=== PATIENT | female | born 1950 | race Caucasian/White ===

== ENCOUNTER 2021-03-31 11:10 | Inpatient (IN) | payer MEDICARE, OTHER ==
--- NOTE | 2021-03-31 11:20 | EDM.PDOC ---
ED HPI GENERAL MEDICAL PROBLEM - General Chief Complaint: Respiratory Problem Stated Complaint: SHORTNESS OF BREATH, COUGHING, WHEEZING Time Seen by Provider: 03/31/21 11:19 Source of Information: Reports: Patient, Family History Limitations: Reports: No Limitations - History of Present Illness INITIAL COMMENTS - FREE TEXT/NARRATIVE: Doris, 70-year-old female, presents along with her daughter to the emergency department with worsening respiratory distress. She has been ongoing with cough and worsening shortness of breath for the past 4 days. Has had no significant fevers. Feels a pressure sensation in the chest and now has developed musculature discomfort in the abdominal wall chest wall secondary of coughing. Cough is nonproductive. Noted hospitalized for respiratory status issues. Doris is a new patient in the system never having received services at the hospital or within [facility], and has only had establishment of care with [place] having an echocardiogram performed with normal findings and pulmonology consult pending. she is not experienced positive COVID-19 and is fully vaccinated. She has not had any Covid symptoms or direct contact. Onset Date: 03/27/21 Duration: Day(s):, Getting Worse Location: Reports: Chest Quality: Reports: Burning Severity: Severe Improves with: Reports: None, Other (Minimal if any improvement with the use of Bowdle dilators) Context: Reports: Sick Contact Associated Symptoms: Reports: No Other Symptoms Bilateral Middle Back Pain Score (Numeric/FACES): 5 - Related Data Allergies Allergy/AdvReac Type Severity Reaction Status Date / Time No Known Allergies Allergy Verified 03/31/21 11:29 Past Medical History HEENT History: Reports: Impaired Vision Cardiovascular History: Reports: High Cholesterol Respiratory History: Reports: None Gastrointestinal History: Reports: None Genitourinary History: Reports: None 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 Denies: Blood Transfusion(s) Immunologic History: Reports: None Oncologic (Cancer) History: Reports: None Dermatologic History: Reports: None - Infectious Disease History Infectious Disease History: Reports: None - Past Surgical History Head Surgeries/Procedures: Reports: None Cardiovascular Surgical History: Reports: None Respiratory Surgical History: Reports: None GI Surgical History: Reports: Cholecystectomy, Other (See Below) (Spleenectomy secondary of trauma age 7) Female Surgical History: Reports: Hysterectomy Endocrine Surgical History: Reports: None Neurological Surgical History: Reports: None Oncologic Surgical History: Reports: None Dermatological Surgical History: Reports: None - Past Imaging History Past Imaging History: Reports: Cardiac Echo, Xray ( Recent chest x-ray shows scarring of the lung. Unknown causation leading to upcoming pulmonary function testing scheduled for April.) - History Comment History Comment: She states that in the past was associated spider bites with some form of blood poisoning but states it has been several years since that had occurred. Social & Family History - Family History Family Medical History: No Pertinent Family History - Tobacco Use Tobacco Use Status *Q: Never Tobacco User Tobacco Use Within Last Twelve Months: No Used Tobacco, but Quit: No Smoking Cessation Information Provided To Patient: No Second Hand Smoke Exposure: Yes Second Hand Smoke Education Provided: No ED ROS GENERAL - Review of Systems Review Of Systems: Comprehensive ROS is negative, except as noted in HPI. ED EXAM, GENERAL - Physical Exam Exam: See Below Free Text/Narrative:: Alert, oriented, in mild respiratory distress. HEENT is negative discharge or deformity with pink moist mucous membranes. There is no evidence of cyanosis nor pallor. Neck is soft supple with no lymphadenopathy appreciated, no rigidity is noted. Thorax is very harsh scattered rhonchi with some associated crackles with forced exhalation and end expiratory wheeze noted predominantly to the left side. She is diaphoretic and warm to touch during cardiopulmonary examination. Cardiac is regular tachycardic with no noted murmur. No flank pain, no abdominal discomfort with bowel sounds present. No tenderness to palpation. Lower extremities have trace edema with skin warm and dry to the extremities. #1 Interpretation EKG Date: 03/31/21 Time: 12:23 Rhythm: NSR Rate (Beats/Min): 96 [place]: Normal P-Wave: Present QRS: Normal Course - Vital Signs Last Recorded V/S: Last Vital Signs Temp 97.3 F 03/31/21 11:25 Pulse 86 03/31/21 11:25 Resp 18 03/31/21 11:25 BP 135/82 03/31/21 11:25 Pulse Ox 93 L 03/31/21 11:25 - Orders/Labs/Meds Orders: Active Orders 24 hr Category Date Time Status EKG Documentation Completion [RC] ASDIRECTED Care 03/31/21 11:27 Active Peripheral IV Care [RC] . DIRECTED Care 03/31/21 11:27 Active RT Aerosol Therapy [RC] ASDIRECTED Care 03/31/21 11:39 Active CULTURE BLOOD [BC] Stat Lab 03/31/21 11:28 Ordered CULTURE BLOOD [BC] Stat Lab 03/31/21 11:45 Received Sodium Chloride 0.9% [Saline Flush] Med 03/31/21 11:26 Active 10 ml FLUSH Q8HR PRN Blood Culture x2 Reflex Set [OM.PC] Stat Oth 03/31/21 11:28 Ordered Peripheral IV Insertion Pediatric [OM.PC] Stat Oth 03/31/21 11:27 Ordered Code Status [Resuscitation Status] Stat Resus Stat 03/31/21 12:38 Ordered EKG 12 Lead [EK] Stat Ther 03/31/21 11:27 Ordered Medication Orders Sodium Chloride (Sodium Chloride 0.9% 10 Ml Syringe) 10 ml FLUSH Q8HR PRN PRN Reason: keep vein open Labs: Laboratory Tests 03/31/21 03/31/21 03/31/21 Range/Units 11:45 11:45 11:45 WBC 4.41 L (5.00-10.00) 10^3/uL RBC 4.70 (3.80-5.50) 10^6/uL Hgb 14.9 (12.0-16.0) g/dL Hct 43.8 (37.0-47.0) % MCV 93.2 H (82.0-92.0) fL MCH 31.7 H (27.0-31.0) pg MCHC 34.0 (32.0-36.0) g/dL RDW 14.0 (11.5-14.5) % Plt Count 314 (150-400) 10^3/uL MPV 10.1 (7.4-10.4) fL Add Manual Diff Yes Neutrophils % (Manual) 58 (50-70) % Band Neutrophils % 4 (4-12) % Lymphocytes % (Manual) 24 (20-40) % Monocytes % (Manual) 11 H (2-8) % Eosinophils % (Manual) 3 (1-3) % Absolute Neutrophils 2.7342 Lymphocytes # (Manual) 1.0584 Monocytes # (Manual) 0.4851 Eosinophils # (Manual) 0.1323 D-Dimer, Quantitative 277 (<400) ng/mL Sodium 135 L (136-145) mmol/L Potassium 3.6 (3.5-5.1) mmol/L Chloride 98 (98-107) mmol/L Carbon Dioxide 25.7 (21.0-32.0) mmol/L Anion Gap 14.9 (5-15) mmol/L BUN 7 (7-18) mg/dL Creatinine 0.55 (0.51-1.17) mg/dL Est Cr Clr Drug Dosing TNP Estimated GFR (MDRD) > 60 mL/min Glucose 113 (70-140) mg/dL Lactic Acid (0.4-2.0) mmol/L Calcium 8.9 (8.7-10.3) mg/dL Total Bilirubin 0.6 (0.2-1.0) mg/dL AST 58 H (15-37) U/L ALT 51 (14-63) U/L Alkaline Phosphatase 64 (46-116) U/L Troponin I High Sens 6.800 (0-51.000) pg/mL B-Natriuretic Peptide 37 (0-100) pg/mL Total Protein 7.7 (6.4-8.2) g/dL Albumin 3.47 (3.40-5.00) g/dL SARS CoV-2 RNA Rapid ROWDY (NEGATIVE) 03/31/21 03/31/21 Range/Units 11:45 12:26 WBC (5.00-10.00) 10^3/uL RBC (3.80-5.50) 10^6/uL Hgb (12.0-16.0) g/dL Hct (37.0-47.0) % MCV (82.0-92.0) fL MCH (27.0-31.0) pg MCHC (32.0-36.0) g/dL RDW (11.5-14.5) % Plt Count (150-400) 10^3/uL MPV (7.4-10.4) fL Add Manual Diff Neutrophils % (Manual) (50-70) % Band Neutrophils % (4-12) % Lymphocytes % (Manual) (20-40) % Monocytes % (Manual) (2-8) % Eosinophils % (Manual) (1-3) % Absolute Neutrophils Lymphocytes # (Manual) Monocytes # (Manual) Eosinophils # (Manual) D-Dimer, Quantitative (<400) ng/mL Sodium (136-145) mmol/L Potassium (3.5-5.1) mmol/L Chloride (98-107) mmol/L Carbon Dioxide (21.0-32.0) mmol/L Anion Gap (5-15) mmol/L BUN (7-18) mg/dL Creatinine (0.51-1.17) mg/dL Est Cr Clr Drug Dosing Estimated GFR (MDRD) mL/min Glucose (70-140) mg/dL Lactic Acid 0.9 (0.4-2.0) mmol/L Calcium (8.7-10.3) mg/dL Total Bilirubin (0.2-1.0) mg/dL AST (15-37) U/L ALT (14-63) U/L Alkaline Phosphatase (46-116) U/L Troponin I High Sens (0-51.000) pg/mL B-Natriuretic Peptide (0-100) pg/mL Total Protein (6.4-8.2) g/dL Albumin (3.40-5.00) g/dL SARS CoV-2 RNA Rapid ROWDY Negative (NEGATIVE) Meds: Medications Generic Name Dose Route Start Last Admin Trade Name Freq PRN Reason Stop Dose Admin Sodium Chloride 10 ml 03/31/21 11:26 Sodium Chloride 0.9% 10 Ml Syringe FLUSH Q8HR PRN keep vein open Discontinued Medications Generic Name Dose Route Start Last Admin Trade Name Freq PRN Reason Stop Dose Admin Albuterol/Ipratropium 3 ml 03/31/21 11:39 03/31/21 11:46 Albuterol/Ipratropium 3.0-0.5 Mg/3 Ml Neb Soln NEB 03/31/21 11:40 3 ml ONETIME ONE Administration Loratadine 10 mg 03/31/21 12:36 03/31/21 12:56 Loratadine 10 Mg Tab PO 03/31/21 12:37 10 mg ONETIME ONE Administration Prednisone 40 mg 03/31/21 12:36 03/31/21 12:56 Prednisone 10 Mg Tab PO 03/31/21 12:37 40 mg ONETIME ONE Administration Departure - Departure Time of Disposition: 13:20 Disposition: Refer to Observation Condition: Good Clinical Impression: COVID-19 ruled out by laboratory testing, Tachycardia with heart rate 100-120 beats per minute, Requires oxygen therapy, COPD (chronic obstructive pulmonary disease), Shortness of breath - Discharge Information *PRESCRIPTION DRUG MONITORING PROGRAM REVIEWED*: Not Applicable *COPY OF PRESCRIPTION DRUG MONITORING REPORT IN PATIENT KARAN: Not Applicable Referrals: Keke Silva PA-C [Primary Care Provider] - Forms: ED Department Discharge Additional Instructions: Discussion with Dr. Veronica Aparicio for observation placement. Will be full CODE STATUS. Sepsis Event Note (ED) - Focused Exam Vital Signs: Vital Signs Temp Pulse Resp BP Pulse Ox 03/31/21 11:25 97.3 F 86 18 135/82 93 L ED Communication - ED Communication Date/Time Date: 03/31/21 Time Called: 12:30 - Discussed Case With (1) Discussed Case With (1): Admitting Provider Person/s Notified (1): Milly Zayas - Problem List & Annotations (1) Shortness of breath SNOMED Code(s): 332415939 Code(s): R06.02 - SHORTNESS OF BREATH Status: Acute Priority: High Current Visit: Yes (2) Tachycardia with heart rate 100-120 beats per minute SNOMED Code(s): 4742649 Code(s): R00.0 - TACHYCARDIA, UNSPECIFIED Status: Acute Priority: Medium Current Visit: Yes (3) COPD (chronic obstructive pulmonary disease) SNOMED Code(s): 18278353 Code(s): J44.9 - CHRONIC OBSTRUCTIVE PULMONARY DISEASE, UNSPECIFIED Status: Acute Priority: High Current Visit: Yes Qualifiers: COPD type: unspecified COPD Qualified Code(s): J44.9 - Chronic obstructive pulmonary disease, unspecified (4) Requires oxygen therapy SNOMED Code(s): 269185093049 Code(s): Z99.81 - DEPENDENCE ON SUPPLEMENTAL OXYGEN Status: Acute Priority: High Current Visit: Yes (5) COVID-19 ruled out by laboratory testing SNOMED Code(s): 869115559142967579, 241778516581072533 Code(s): Z20.822 - CONTACT WITH AND (SUSPECTED) EXPOSURE TO COVID-19 Status: Acute Current Visit: Yes - Problem List Review Problem List Initiated/Reviewed/Updated: Yes - My Orders Last 24 Hours: My Active Orders 03/31/21 11:26 Sodium Chloride 0.9% [Saline Flush] 10 ml FLUSH Q8HR PRN 03/31/21 11:27 EKG Documentation Completion [RC] ASDIRECTED Peripheral IV Care [RC] . DIRECTED Peripheral IV Insertion Pediatric [OM.PC] Stat EKG 12 Lead [EK] Stat 03/31/21 11:28 CULTURE BLOOD [BC] Stat Blood Culture x2 Reflex Set [OM.PC] Stat 03/31/21 11:39 RT Aerosol Therapy [RC] ASDIRECTED 03/31/21 11:45 CULTURE BLOOD [BC] Stat 03/31/21 12:38 Code Status [Resuscitation Status] Stat - Assessment/Plan Last 24 Hours: My Active Orders 03/31/21 11:26 Sodium Chloride 0.9% [Saline Flush] 10 ml FLUSH Q8HR PRN 03/31/21 11:27 EKG Documentation Completion [RC] ASDIRECTED Peripheral IV Care [RC] . DIRECTED Peripheral IV Insertion Pediatric [OM.PC] Stat EKG 12 Lead [EK] Stat 03/31/21 11:28 CULTURE BLOOD [BC] Stat Blood Culture x2 Reflex Set [OM.PC] Stat 03/31/21 11:39 RT Aerosol Therapy [RC] ASDIRECTED 03/31/21 11:45 CULTURE BLOOD [BC] Stat 03/31/21 12:38 Code Status [Resuscitation Status] Stat Plan: Discussion with Dr. Veronica Aparicio for observation placement. Will be full CODE STATUS.
[2021-03-31] MEDS ORDERED: Sodium Chloride 0.9% 10 ML Syringe FLUSH PRN (11:26)
[2021-03-31] MEDS ORDERED: Albuterol/Ipratropium 3.0-0.5 MG/3 ML Neb Soln NEB ONE (11:39)
[2021-03-31 12:07] LABS: ANION GAP 14.9 mmol/L (5-15); CHLORIDE,CL 98 mmol/L (98-107); SODIUM,NA 135 mmol/L (136-145)
--- NOTE | 2021-03-31 12:31 | CR ---
[id number] RAD/RAD Chest PA And Lateral EXAM: FRONTAL AND LATERAL CHEST INDICATION: SHORT OF BREATH. COMPARISON: January 19, 2017 DISCUSSION: Hyperinflation suggests underlying chronic obstructive pulmonary disease. No acute infiltrates are identified. Normal heart size. No effusions. IMPRESSION: 1. No acute findings. Cristi Turner MD 03/31/21 [phone] Thank you for allowing us to participate in the care of your patient.
[2021-03-31] MEDS ORDERED: predniSONE 10 MG Tab PO ONE (12:36)
[2021-03-31] MEDS ORDERED: Loratadine 10 MG Tab PO ONE (12:36)
[2021-03-31] MEDS ORDERED: Acetaminophen 325 MG Tab PO PRN (15:12)
[2021-03-31] MEDS: Albuterol/Ipratropium 3.0-0.5 MG/3 ML Neb Soln NEB PRN (20:42)
[2021-03-31] MEDS: Melatonin 3 MG Tab PO PRN (20:44)
[2021-04-01] MEDS: predniSONE 20 MG Tab PO SCH (08:24)
[2021-04-01] MEDS: Loratadine 10 MG Tab PO SCH (08:24)
[2021-04-01] MEDS: Rosuvastatin 10 MG Tab PO SCH (08:24)
[2021-04-01] MEDS: Albuterol/Ipratropium 3.0-0.5 MG/3 ML Neb Soln NEB PRN (08:29)
[2021-04-01] MEDS ORDERED: Albuterol 0.083% 2.5 MG/3 ML Neb Soln NEB PRN (11:51)
[2021-04-01] MEDS ORDERED: Diclofenac Sodium 1% Gel 100 GM Tube TOP PRN (11:52)
--- NOTE | 2021-04-01 12:14 | PCM.PN ---
- General Info Date of Service: 04/01/21 Subjective Update: Mrs. Ivy reports feeling slightly better than yesterday, most notably for the couple hours after DuoNeb treatments, but then returning back to increasing shortness of breath and cough. Slept poorly. Eating without difficulty. Voiding and stooling without problem. - Patient Data Vitals - Most Recent: Last Vital Signs Temp 36.6 C 04/01/21 11:00 Pulse 86 04/01/21 11:00 Resp 24 H 04/01/21 11:00 BP 125/61 04/01/21 11:00 Pulse Ox 87 L 04/01/21 11:00 Weight - Most Recent: 112.4 kg I&O - Last 24 Hours: Intake & Output 03/31/21 04/01/21 04/01/21 22:59 06:59 14:59 Intake Total 550 350 Output Total 950 Balance 550 -600 Lab Results Last 24 Hours: Laboratory Results - last 24 hr 03/31/21 03/31/21 03/31/21 Range/Units 11:45 11:45 11:45 Neutrophils % (Manual) 58 (50-70) % Band Neutrophils % 4 (4-12) % Lymphocytes % (Manual) 24 (20-40) % Monocytes % (Manual) 11 H (2-8) % Eosinophils % (Manual) 3 (1-3) % Absolute Neutrophils 2.7342 Lymphocytes # (Manual) 1.0584 Monocytes # (Manual) 0.4851 Eosinophils # (Manual) 0.1323 Sodium 135 L (136-145) mmol/L Potassium 3.6 (3.5-5.1) mmol/L Chloride 98 (98-107) mmol/L Carbon Dioxide 25.7 (21.0-32.0) mmol/L Anion Gap 14.9 (5-15) mmol/L BUN 7 (7-18) mg/dL Creatinine 0.55 (0.51-1.17) mg/dL Est Cr Clr Drug Dosing TNP Estimated GFR (MDRD) > 60 mL/min Glucose 113 (70-140) mg/dL Lactic Acid 0.9 (0.4-2.0) mmol/L Calcium 8.9 (8.7-10.3) mg/dL Total Bilirubin 0.6 (0.2-1.0) mg/dL AST 58 H (15-37) U/L ALT 51 (14-63) U/L Alkaline Phosphatase 64 (46-116) U/L Troponin I High Sens 6.800 (0-51.000) pg/mL B-Natriuretic Peptide 37 (0-100) pg/mL Total Protein 7.7 (6.4-8.2) g/dL Albumin 3.47 (3.40-5.00) g/dL SARS CoV-2 RNA Rapid ROWDY (NEGATIVE) 03/31/21 Range/Units 12:26 Neutrophils % (Manual) (50-70) % Band Neutrophils % (4-12) % Lymphocytes % (Manual) (20-40) % Monocytes % (Manual) (2-8) % Eosinophils % (Manual) (1-3) % Absolute Neutrophils Lymphocytes # (Manual) Monocytes # (Manual) Eosinophils # (Manual) Sodium (136-145) mmol/L Potassium (3.5-5.1) mmol/L Chloride (98-107) mmol/L Carbon Dioxide (21.0-32.0) mmol/L Anion Gap (5-15) mmol/L BUN (7-18) mg/dL Creatinine (0.51-1.17) mg/dL Est Cr Clr Drug Dosing Estimated GFR (MDRD) mL/min Glucose (70-140) mg/dL Lactic Acid (0.4-2.0) mmol/L Calcium (8.7-10.3) mg/dL Total Bilirubin (0.2-1.0) mg/dL AST (15-37) U/L ALT (14-63) U/L Alkaline Phosphatase (46-116) U/L Troponin I High Sens (0-51.000) pg/mL B-Natriuretic Peptide (0-100) pg/mL Total Protein (6.4-8.2) g/dL Albumin (3.40-5.00) g/dL SARS CoV-2 RNA Rapid ROWDY Negative (NEGATIVE) Med Orders - Current: Current Medications Acetaminophen (Acetaminophen 325 Mg Tab) 650 mg PO Q4H PRN PRN Reason: analgesia/fever Albuterol (Albuterol 0.083% 2.5 Mg/3 Ml Neb Soln) 2.5 mg NEB Q4HRRT PRN PRN Reason: Shortness of Breath Albuterol/Ipratropium (Albuterol/Ipratropium 3.0-0.5 Mg/3 Ml Neb Soln) 3 ml NEB Q6H KIM Diclofenac Sodium (Diclofenac Sodium 1% Gel 100 Gm Tube) 1 gm TOP Q6H PRN PRN Reason: Pain Fluticasone Propionate (Fluticasone Propionate Nasal [place] 16 Gm Bottle) 0 gm NASBOTH BID [facility] Loratadine (Loratadine 10 Mg Tab) 10 mg PO DAILY [facility] Last Admin: 04/01/21 08:24 Dose: 10 mg Documented by: Melatonin (Melatonin 3 Mg Tab) 3 mg PO BEDTIME PRN PRN Reason: Insomnia Last Admin: 03/31/21 20:44 Dose: 3 mg Documented by: Prednisone (Prednisone 20 Mg Tab) 40 mg PO WITHBREAKFAST [facility] Last Admin: 04/01/21 08:24 Dose: 40 mg Documented by: Rosuvastatin Calcium (Rosuvastatin 10 Mg Tab) 10 mg PO DAILY [facility] Last Admin: 04/01/21 08:24 Dose: 10 mg Documented by: Sodium Chloride (Sodium Chloride 0.9% 10 Ml Syringe) 10 ml FLUSH Q8HR PRN PRN Reason: keep vein open Discontinued Medications Albuterol/Ipratropium (Albuterol/Ipratropium 3.0-0.5 Mg/3 Ml Neb Soln) 3 ml NEB ONETIME ONE Stop: 03/31/21 11:40 Last Admin: 03/31/21 11:46 Dose: 3 ml Documented by: Albuterol/Ipratropium (Albuterol/Ipratropium 3.0-0.5 Mg/3 Ml Neb Soln) 3 ml NEB Q4HRRT PRN PRN Reason: Shortness of Breath Last Admin: 04/01/21 08:29 Dose: 3 ml Documented by: Loratadine (Loratadine 10 Mg Tab) 10 mg PO ONETIME ONE Stop: 03/31/21 12:37 Last Admin: 03/31/21 12:56 Dose: 10 mg Documented by: Prednisone (Prednisone 10 Mg Tab) 40 mg PO ONETIME ONE Stop: 03/31/21 12:37 Last Admin: 03/31/21 12:56 Dose: 40 mg Documented by: - Exam Physical Findings Comments:: GENERAL: Elderly white female sitting in hospital bed with mild increased work of breathing and audible expiratory wheezing. HEENT: Normocephalic, atraumatic. Conjunctiva clear. Nasal cannula in place. Clear rhinorrhea. Postnasal drip. Mucous membranes moist. NECK: Supple, no masses. CV: Regular rate and rhythm, no murmurs, rubs, or gallops. 2+ radial pulses. No JVD. PULMONARY: Diffuse expiratory wheezing throughout lung chaudhary, with interval improvement from admission. ABDOMEN: Positive bowel sounds, soft, nontender, nondistended. EXTREMITIES: No edema, cyanosis, or clubbing. MUSCULOSKELETAL: Moves all extremities well. NEUROLOGICAL: No obvious deficits. DERMATOLOGIC: No rashes or suspicious lesions in exposed areas. PSYCHIATRIC: Alert, interactive, appropriate affect. - Patient Data Lab Results Last 24 hrs: Laboratory Results - last 24 hr 03/31/21 03/31/21 03/31/21 Range/Units 11:45 11:45 11:45 Neutrophils % (Manual) 58 (50-70) % Band Neutrophils % 4 (4-12) % Lymphocytes % (Manual) 24 (20-40) % Monocytes % (Manual) 11 H (2-8) % Eosinophils % (Manual) 3 (1-3) % Absolute Neutrophils 2.7342 Lymphocytes # (Manual) 1.0584 Monocytes # (Manual) 0.4851 Eosinophils # (Manual) 0.1323 Sodium 135 L (136-145) mmol/L Potassium 3.6 (3.5-5.1) mmol/L Chloride 98 (98-107) mmol/L Carbon Dioxide 25.7 (21.0-32.0) mmol/L Anion Gap 14.9 (5-15) mmol/L BUN 7 (7-18) mg/dL Creatinine 0.55 (0.51-1.17) mg/dL Est Cr Clr Drug Dosing TNP Estimated GFR (MDRD) > 60 mL/min Glucose 113 (70-140) mg/dL Lactic Acid 0.9 (0.4-2.0) mmol/L Calcium 8.9 (8.7-10.3) mg/dL Total Bilirubin 0.6 (0.2-1.0) mg/dL AST 58 H (15-37) U/L ALT 51 (14-63) U/L Alkaline Phosphatase 64 (46-116) U/L Troponin I High Sens 6.800 (0-51.000) pg/mL B-Natriuretic Peptide 37 (0-100) pg/mL Total Protein 7.7 (6.4-8.2) g/dL Albumin 3.47 (3.40-5.00) g/dL SARS CoV-2 RNA Rapid ROWDY (NEGATIVE) 03/31/21 Range/Units 12:26 Neutrophils % (Manual) (50-70) % Band Neutrophils % (4-12) % Lymphocytes % (Manual) (20-40) % Monocytes % (Manual) (2-8) % Eosinophils % (Manual) (1-3) % Absolute Neutrophils Lymphocytes # (Manual) Monocytes # (Manual) Eosinophils # (Manual) Sodium (136-145) mmol/L Potassium (3.5-5.1) mmol/L Chloride (98-107) mmol/L Carbon Dioxide (21.0-32.0) mmol/L Anion Gap (5-15) mmol/L BUN (7-18) mg/dL Creatinine (0.51-1.17) mg/dL Est Cr Clr Drug Dosing Estimated GFR (MDRD) mL/min Glucose (70-140) mg/dL Lactic Acid (0.4-2.0) mmol/L Calcium (8.7-10.3) mg/dL Total Bilirubin (0.2-1.0) mg/dL AST (15-37) U/L ALT (14-63) U/L Alkaline Phosphatase (46-116) U/L Troponin I High Sens (0-51.000) pg/mL B-Natriuretic Peptide (0-100) pg/mL Total Protein (6.4-8.2) g/dL Albumin (3.40-5.00) g/dL SARS CoV-2 RNA Rapid ROWDY Negative (NEGATIVE) Result Diagrams: 03/31/21 11:45 03/31/21 11:45 Sepsis Event Note - Evaluation Sepsis Screening Result: No Definite Risk - Focused Exam Vital Signs: Vital Signs Temp Pulse Resp BP Pulse Ox Pulse Ox Pulse Ox 04/01/21 11:00 36.6 C 86 24 H 125/61 87 L 04/01/21 10:50 87 L 04/01/21 10:30 95 04/01/21 08:29 71 95 04/01/21 06:30 36.6 C 74 16 120/72 96 04/01/21 02:59 36.4 C 79 16 134/66 97 - Problem List Review Problem List Initiated/Reviewed/Updated: Yes - My Orders Last 24 Hours: My Active Orders 03/31/21 15:12 Up With Assistance [RC] ASDIRECTED Vital Signs [RC] Q8H Acetaminophen [TylenoL] 650 mg PO Q4H PRN 03/31/21 15:13 Intake and Output [RC] 1400,2200,0600 Oxygen Therapy [RC] .PRN 03/31/21 15:15 RT Aerosol Therapy [RC] ASDIRECTED 03/31/21 Dinner Regular Diet [DIET] 03/31/21 20:35 Melatonin 3 mg PO BEDTIME PRN 04/01/21 08:00 predniSONE 40 mg PO WITHBREAKFAST 04/01/21 09:00 Loratadine [Claritin] 10 mg PO DAILY Rosuvastatin [Crestor] 10 mg PO DAILY 04/01/21 11:50 Incentive Spirometry [RT Incentive Spirometry] [RC] Q1HWA Chest wo Cont [CT] Routine 04/01/21 11:51 RT Aerosol Therapy [RC] ASDIRECTED Albuterol [Proventil Neb Soln] 2.5 mg NEB Q4HRRT PRN 04/01/21 11:52 Diclofenac Sodium [Voltaren 1% Gel] 1 gm TOP Q6H PRN Heat Therapy [OM.PC] Routine Ice Therapy [OM.PC] Routine 04/01/21 12:00 Albuterol/Ipratropium [DuoNeb 3.0-0.5 MG/3 ML] 3 ml NEB Q6H Fluticasone Propionate [Flonase] 0 gm NASBOTH BID - Plan Plan:: HPI summary: Mrs. Ivy is a 70yoF with a history of hyperlipidemia who reported to the ED for progressive shortness of breath and cough. She notes several months of increasing shortness of breath and cough, which has especially worsened in the past week. She was seen to establish care with Keke Silva PA-C, on 03/13/21, and at that time had noted several weeks of shortness of breath for which she had CXR and echocardiogram performed, which were overall without suggestive sarah ology. She had previously been referred to pulmonology by prior PCP and is scheduled to be seen at [facility] on 05/01/21. She has since had ongoing worsening of dry cough, wheezing, and shortness of breath. Due to ongoing significant worsening, she was brought to the [facility] ED for further evaluation. She recently moved to [place] into an apartment in October 2019; previously lived in a single family home in [place]. Her , Adalberto, has also had worsening shortness of breath and cough over the past several months. ED course: VS normal except for O2 <90% on room air, requiring 2lpm via nasal cannula to be 90% Appears short of breath and with audible wheezing CBC/CMP/lactic acid/BNP/D-dimer/troponin normal except for WBC low at 4.41 and AST elevated at 58 SARS-CoV-2 negative CXR without acute abnormality, but with hyperinflation suggesting COPD EKG NSR without ST-segment changes Given DuoNebs with improvement, but still with oxygen requirement Hospital course: Called for admission due to persistent hypoxia. Etiology favors possible underlying COPD and possible allergic versus environmental trigger. Recommended administration of prednisone 40mg and loratadine 10mg along with admission to observation status for further monitoring, workup, and management. 04/01/21: Persistent oxygen requirement as well as shortness of breath and cough, albeit with mild improvement with DuoNebs, prednisone, and loratadine. History elucidated to be more of a chronic concern in the past several months, with ongoing suspicion for environmental exposure. Hospitalization problems and plan: # Acute hypoxic respiratory failure: No prior oxygen requirement. # COPD, possible: Hyperinflation on CXR. No prior PFTs. # Allergic rhinitis # Possible environmental allergy or exposure: History of her and recently moving in October 2019 to apartment and both having onset of progressive shortness of breath, wheezing, and cough since without other identifiable etiology. - VS q8h, I/O - Titrate oxygen to maintain saturations at at least 90% - Respiratory therapy assisting with home oxygen qualification testing; order sent to [facility] for home oxygen if needed at discharge - Incentive spirometry q1h while awake - Change nebulizer treatments to DuoNebs q6h scheduled with albuterol q6h prn - Continue prednisone 40mg daily - Continue loratadine 10mg daily - Start Flonase BID - CT chest to further assess for underlying bronchiectasis or other pulmonary process - Consider fungal testing to further elucidate etiology - Coordinate future PFTs to further evaluate prior to planned upcoming pulmonology appointment - Encourage looking into vent system and other possible culprits for environmental exposure at apartment # Posterior L rib pain: Fitting with MSK strain from coughing. - Diclofenac topical, heat, and ice therapy to site Chronic, stable conditions: # Hyperlipidemia: Continue rosuvastatin. Hospitalization details: # FEN: No IVF. Electrolytes normal. Regular diet. # PPX: Enoxaparin for DVT ppx while in hospital. # Code status: FULL, discussed with patient upon admission. # Emergency contact: , Adalberto. Daughter, Pam. # Disposition: Admit to observation status for new onset hypoxia for further evaluation and management.
--- NOTE | 2021-04-01 12:14 | PCM.HP.2 ---
H&P History of Present Illness - General Date of Service: 03/31/21 Admit Problem/Dx: Admission Diagnosis/Problem Admission Diagnosis/Problem COPD, Mild chronic obstructive pulmonary disease Source of Information: Patient, Family, Old Records, Provider - History of Present Illness Initial Comments - Free Text/Narative: Mrs. Ivy is a 70yoF with a history of hyperlipidemia who reported to the ED for progressive shortness of breath and cough. She notes several months of increasing shortness of breath and cough, which has especially worsened in the past week. She was seen to establish care with Keke Silva PA-C, on 03/13/21, and at that time had noted several weeks of worsening symptoms for which she had CXR and echocardiogram performed, which were overall without suggestive etiology. She has since had ongoing worsening of dry cough, wheezing, and shortness of breath. Due to ongoing significant worsening, she was brought to the [facility] ED for further evaluation. She recently moved to [place] into an apartment; previously lived in a single family home in [place]. Her , Adalberto, has also had worsening shortness of breath and cough over the past several weeks. Upon evaluation in the ED, she notes some mild improvement in symptoms s/p DuoNeb treatment, but still endorses symptoms even at rest. Bilateral Middle Back Pain Score (Numeric/FACES): 8 - Related Data Allergies/Adverse Reactions: Allergies Allergy/AdvReac Type Severity Reaction Status Date / Time No Known Allergies Allergy Verified 03/31/21 11:29 Home Medications: Home Meds Albuterol [Ventolin HFA] 1 puff IA ASDIRECTED PRN 03/31/21 [History] Rosuvastatin [Crestor] 10 mg PO DAILY 03/31/21 [History] Past Medical History HEENT History: Reports: Impaired Vision Cardiovascular History: Reports: High Cholesterol Respiratory History: Reports: None Gastrointestinal History: Reports: None Genitourinary History: Reports: None [employer] History: Reports: Musculoskeletal History: Reports: Other (See Below) Neurological History: Reports: None Psychiatric History: Reports: None Endocrine/Metabolic History: Reports: None Hematologic History: Reports: None Immunologic History: Reports: None Oncologic (Cancer) History: Reports: None Dermatologic History: Reports: None - Infectious Disease History Infectious Disease History: Reports: None - Past Surgical History Head Surgeries/Procedures: Reports: None Cardiovascular Surgical History: Reports: None Respiratory Surgical History: Reports: None GI Surgical History: Reports: Cholecystectomy, Other (See Below) Female Surgical History: Reports: Hysterectomy Endocrine Surgical History: Reports: None Neurological Surgical History: Reports: None Musculoskeletal Surgical History: Reports: Knee Replacement Oncologic Surgical History: Reports: None Dermatological Surgical History: Reports: None - Past Imaging History Past Imaging History: Reports: Cardiac Echo, Xray ( Recent chest x-ray shows scarring of the lung. Unknown causation leading to upcoming pulmonary function testing scheduled for April.) - History Comment History Comment: She states that in the past was associated spider bites with some form of blood poisoning but states it has been several years since that had occurred. Social & Family History - Family History Family Medical History: No Pertinent Family History - Tobacco Use Tobacco Use Status *Q: Never Tobacco User Used Tobacco, but Quit: No Second Hand Smoke Exposure: Yes - Caffeine Use Caffeine Use: Reports: Coffee - Recreational Drug Use Recreational Drug Use: No H&P Review of Systems - Review of Systems: Review Of Systems: See Below General: Reports: Weakness, Fatigue. Denies: Fever, Chills HEENT: Reports: Rhinitis, Post Nasal Drip. Denies: Ear Pain, Eye Pain, Headaches, Sore Throat, Visual Changes Pulmonary: Reports: Shortness of Breath, Wheezing, Cough. Denies: Sputum, Hemoptysis Cardiovascular: Reports: Dyspnea on Exertion. Denies: Chest Pain, Palpitations, Orthopnea, PND, Edema, Lightheadedness, Syncope Gastrointestinal: Denies: Abdominal Pain, Constipation, Diarrhea, Nausea, Vomiting Genitourinary: Denies: Dysuria, Frequency, Burning Musculoskeletal: Reports: Back Pain (along posterior L rib). Denies: Muscle Pain, Muscle Stiffness Skin: Denies: Bruising, Rash, Wound Psychiatric: Denies: Confusion, Depression, Anxiety Neurological: Denies: Confusion, Dizziness, Headache, Numbness Hematologic/Lymphatic: Denies: Anemia, Easy Bleeding, Easy Bruising Exam - Exam Exam: See Below - Vital Signs Vital Signs: Last Vital Signs Temp 36.6 C 04/01/21 11:00 Pulse 86 04/01/21 11:00 Resp 24 H 04/01/21 11:00 BP 125/61 04/01/21 11:00 Pulse Ox 87 L 04/01/21 11:00 Weight: 112.4 kg - Exam Physical Exam Comments:: GENERAL: Elderly white female sitting in ED bed with mild increased work of breathing. Daughter, Pam, at bedside. HEENT: Normocephalic, atraumatic. Conjunctiva clear. Nasal cannula in place. Clear rhinorrhea. Postnasal drip. Mucous membranes moist. NECK: Supple, no masses. CV: Regular rate and rhythm, no murmurs, rubs, or gallops. 2+ radial pulses. No JVD. PULMONARY: Diffuse expiratory wheezing throughout lung chaudhary. ABDOMEN: Positive bowel sounds, soft, nontender, nondistended. EXTREMITIES: No edema, cyanosis, or clubbing. MUSCULOSKELETAL: Moves all extremities well. NEUROLOGICAL: No obvious deficits. DERMATOLOGIC: No rashes or suspicious lesions in exposed areas. PSYCHIATRIC: Alert, interactive, appropriate affect. - Patient Data Lab Results Last 24 hrs: Laboratory Results - last 24 hr 03/31/21 03/31/21 03/31/21 Range/Units 11:45 11:45 11:45 Neutrophils % (Manual) 58 (50-70) % Band Neutrophils % 4 (4-12) % Lymphocytes % (Manual) 24 (20-40) % Monocytes % (Manual) 11 H (2-8) % Eosinophils % (Manual) 3 (1-3) % Absolute Neutrophils 2.7342 Lymphocytes # (Manual) 1.0584 Monocytes # (Manual) 0.4851 Eosinophils # (Manual) 0.1323 Sodium 135 L (136-145) mmol/L Potassium 3.6 (3.5-5.1) mmol/L Chloride 98 (98-107) mmol/L Carbon Dioxide 25.7 (21.0-32.0) mmol/L Anion Gap 14.9 (5-15) mmol/L BUN 7 (7-18) mg/dL Creatinine 0.55 (0.51-1.17) mg/dL Est Cr Clr Drug Dosing TNP Estimated GFR (MDRD) > 60 mL/min Glucose 113 (70-140) mg/dL Lactic Acid 0.9 (0.4-2.0) mmol/L Calcium 8.9 (8.7-10.3) mg/dL Total Bilirubin 0.6 (0.2-1.0) mg/dL AST 58 H (15-37) U/L ALT 51 (14-63) U/L Alkaline Phosphatase 64 (46-116) U/L Troponin I High Sens 6.800 (0-51.000) pg/mL B-Natriuretic Peptide 37 (0-100) pg/mL Total Protein 7.7 (6.4-8.2) g/dL Albumin 3.47 (3.40-5.00) g/dL SARS CoV-2 RNA Rapid ROWDY (NEGATIVE) 03/31/21 Range/Units 12:26 Neutrophils % (Manual) (50-70) % Band Neutrophils % (4-12) % Lymphocytes % (Manual) (20-40) % Monocytes % (Manual) (2-8) % Eosinophils % (Manual) (1-3) % Absolute Neutrophils Lymphocytes # (Manual) Monocytes # (Manual) Eosinophils # (Manual) Sodium (136-145) mmol/L Potassium (3.5-5.1) mmol/L Chloride (98-107) mmol/L Carbon Dioxide (21.0-32.0) mmol/L Anion Gap (5-15) mmol/L BUN (7-18) mg/dL Creatinine (0.51-1.17) mg/dL Est Cr Clr Drug Dosing Estimated GFR (MDRD) mL/min Glucose (70-140) mg/dL Lactic Acid (0.4-2.0) mmol/L Calcium (8.7-10.3) mg/dL Total Bilirubin (0.2-1.0) mg/dL AST (15-37) U/L ALT (14-63) U/L Alkaline Phosphatase (46-116) U/L Troponin I High Sens (0-51.000) pg/mL B-Natriuretic Peptide (0-100) pg/mL Total Protein (6.4-8.2) g/dL Albumin (3.40-5.00) g/dL SARS CoV-2 RNA Rapid ROWDY Negative (NEGATIVE) Result Diagrams: 03/31/21 11:45 03/31/21 11:45 Sepsis Event Note - Evaluation Sepsis Screening Result: No Definite Risk - Focused Exam Vital Signs: Vital Signs Temp Pulse Resp BP Pulse Ox Pulse Ox Pulse Ox 04/01/21 11:00 36.6 C 86 24 H 125/61 87 L 04/01/21 10:50 87 L 04/01/21 10:30 95 04/01/21 08:29 71 95 04/01/21 06:30 36.6 C 74 16 120/72 96 04/01/21 02:59 36.4 C 79 16 134/66 97 Problem List Initiated/Reviewed/Updated: Yes Orders Last 24hrs: Active Orders 24 hr Category Date Time Status Patient Status [ADT] Routine ADT 03/31/21 13:13 Active Incentive Spirometry [RT Incentive Spirometry] [RC] Care 04/01/21 11:50 Active Q1HWA Intake and Output [RC] 1400,2200,0600 Care 03/31/21 15:13 Active Oxygen Therapy [RC] .PRN Care 03/31/21 15:13 Active Peripheral IV Care [RC] . DIRECTED Care 03/31/21 11:27 Active RT Aerosol Therapy [RC] ASDIRECTED Care 03/31/21 15:15 Active RT Aerosol Therapy [RC] ASDIRECTED Care 04/01/21 11:51 Active Up With Assistance [RC] ASDIRECTED Care 03/31/21 15:12 Active Vital Signs [RC] Q8H Care 03/31/21 15:12 Active Regular Diet [DIET] Diet 03/31/21 Dinner Active Chest wo Cont [CT] Routine Exams 04/01/21 11:50 Ordered CULTURE BLOOD [BC] Stat Lab 03/31/21 11:45 Received CULTURE BLOOD [BC] Stat Lab 03/31/21 12:25 Received Acetaminophen [TylenoL] Med 03/31/21 15:12 Active 650 mg PO Q4H PRN Albuterol [Proventil Neb Soln] Med 04/01/21 11:51 Active 2.5 mg NEB Q4HRRT PRN Albuterol/Ipratropium [DuoNeb 3.0-0.5 MG/3 ML] Med 04/01/21 12:00 Active 3 ml NEB Q6H Diclofenac Sodium [Voltaren 1% Gel] Med 04/01/21 11:52 Active 1 gm TOP Q6H PRN Fluticasone Propionate [Flonase] Med 04/01/21 12:00 Active 0 gm NASBOTH BID Loratadine [Claritin] Med 04/01/21 09:00 Active 10 mg PO DAILY Melatonin Med 03/31/21 20:35 Active 3 mg PO BEDTIME PRN Rosuvastatin [Crestor] Med 04/01/21 09:00 Active 10 mg PO DAILY Sodium Chloride 0.9% [Saline Flush] Med 03/31/21 11:26 Active 10 ml FLUSH Q8HR PRN predniSONE Med 04/01/21 08:00 Active 40 mg PO WITHBREAKFAST Blood Culture x2 Reflex Set [OM.PC] Stat Ot 03/31/21 11:28 Ordered Heat Therapy [OM.PC] Routine Oth 04/01/21 11:52 Ordered Ice Therapy [OM.PC] Routine Oth 04/01/21 11:52 Ordered Peripheral IV Insertion Pediatric [OM.PC] Stat Oth 03/31/21 11:27 Ordered Code Status [Resuscitation Status] Stat Resus Stat 03/31/21 12:38 Ordered Medication Orders Acetaminophen (Acetaminophen 325 Mg Tab) 650 mg PO Q4H PRN PRN Reason: analgesia/fever Albuterol (Albuterol 0.083% 2.5 Mg/3 Ml Neb Soln) 2.5 mg NEB Q4HRRT PRN PRN Reason: Shortness of Breath Albuterol/Ipratropium (Albuterol/Ipratropium 3.0-0.5 Mg/3 Ml Neb Soln) 3 ml NEB Q6H KIM Diclofenac Sodium (Diclofenac Sodium 1% Gel 100 Gm Tube) 1 gm TOP Q6H PRN PRN Reason: Pain Fluticasone Propionate (Fluticasone Propionate Nasal Rumsey 16 Gm Bottle) 0 gm NASBOTH BID KIM Loratadine (Loratadine 10 Mg Tab) 10 mg PO DAILY [facility] Last Admin: 04/01/21 08:24 Dose: 10 mg Documented by: IAN Melatonin (Melatonin 3 Mg Tab) 3 mg PO BEDTIME PRN PRN Reason: Insomnia Last Admin: 03/31/21 20:44 Dose: 3 mg Documented by: ALMA Prednisone (Prednisone 20 Mg Tab) 40 mg PO WITHBREAKFAST KIM Last Admin: 04/01/21 08:24 Dose: 40 mg Documented by: IAN Rosuvastatin Calcium (Rosuvastatin 10 Mg Tab) 10 mg PO DAILY [facility] Last Admin: 04/01/21 08:24 Dose: 10 mg Documented by: IAN Sodium Chloride (Sodium Chloride 0.9% 10 Ml Syringe) 10 ml FLUSH Q8HR PRN PRN Reason: keep vein open Assessment/Plan Comment:: HPI summary: Mrs. Ivy is a 70yoF with a history of hyperlipidemia who reported to the ED for progressive shortness of breath and cough. She notes several months of increasing shortness of breath and cough, which has especially worsened in the past week. She was seen to establish care with Keke Silva PA-C, on 03/13/21, and at that time had noted several weeks of shortness of breath for which she had CXR and echocardiogram performed, which were overall without suggestive e tiology. She had previously been referred to pulmonology by prior PCP and is scheduled to be seen at [facility] on 05/01/21. She has since had ongoing worsening of dry cough, wheezing, and shortness of breath. Due to ongoing significant worsening, she was brought to the [facility] ED for further evaluation. She recently moved to [place] into an apartment in October 2019; previously lived in a single family home in [place]. Her , Adalberto, has also had worsening shortness of breath and cough over the past several months. ED course: VS normal except for O2 <90% on room air, requiring 2lpm via nasal cannula to be 90% Appears short of breath and with audible wheezing CBC/CMP/lactic acid/BNP/D-dimer/troponin normal except for WBC low at 4.41 and AST elevated at 58 SARS-CoV-2 negative CXR without acute abnormality, but with hyperinflation suggesting COPD EKG NSR without ST-segment changes Given DuoNebs with improvement, but still with oxygen requirement Hospital course: Called for admission due to persistent hypoxia. Etiology favors possible underlying COPD and possible allergic versus environmental trigger. Recommended administration of prednisone 40mg and loratadine 10mg along with admission to observation status for further monitoring, workup, and management. Hospitalization problems and plan: # Acute hypoxic respiratory failure: No prior oxygen requirement. # COPD, possible: Hyperinflation on CXR. No prior PFTs. # Allergic rhinitis # Possible environmental allergy or exposure: History of her and recently moving in October 2019 to apartment and both having onset of progressive shortness of breath, wheezing, and cough since without other identifiable etiology. - VS q4h, I/O - Titrate oxygen to maintain saturations at at least 90% - DuoNebs q4h prn - Prednisone 40mg daily - Loratadine 10mg daily - Consider CT chest depending on status - Coordinate future PFTs to further evaluate prior to planned upcoming pulmonology appointment - Encourage looking into vent system and other possible culprits for environmental exposure at apartment Chronic, stable conditions: # Hyperlipidemia: Continue rosuvastatin. Hospitalization details: # FEN: No IVF. Electrolytes normal. Regular diet. # PPX: Will start enoxaparin for DVT ppx while in hospital if staying >24hrs. # Code status: FULL, discussed with patient upon admission. # Emergency contact: , Adalberto. Daughter, Pam. # Disposition: Admit to observation status for new onset hypoxia for further evaluation and management.
[2021-04-01] MEDS: Albuterol/Ipratropium 3.0-0.5 MG/3 ML Neb Soln NEB SCH ×3 (12:42→23:00)
[2021-04-01] MEDS: Fluticasone Propionate Nasal Spray 16 GM Bottle NASBOTH SCH ×2 (13:07→21:11)
--- NOTE | 2021-04-01 13:55 | CT ---
[id number] CT/CT Chest WO IV EXAM: CT Chest WO IV CLINICAL DATA: CHRONIC COUGH, SHORTNESS OF BREATH. COMPARISON: None. FINDINGS: LUNGS: Minimal bronchiectasis at the left lung base. No airspace consolidation. No suspicious pulmonary nodules or masses. No pneumothorax or effusion. No endobronchial lesions. HEART AND GREAT VESSELS: Coronary artery disease. Atherosclerotic calcifications of aorta and its branches. MEDIASTINUM AND LYMPHATICS: Multiple prominent mediastinal and hilar lymph nodes. For example there is a right paratracheal lymph node measuring 1.0 cm in short axis (series 2 image 39). UPPER ABDOMINAL ORGANS: The gallbladder is surgically absent. Right renal cysts. BONES: Scattered changes of spondylosis in the spine. No fracture or [id number] lesion. IMPRESSION: No evidence of active pneumonia. Jesus León DO 04/01/21 [id number] Thank you for allowing us to participate in the care of your patient.
[2021-04-01] MEDS: Melatonin 3 MG Tab PO PRN (23:08)
[2021-04-02] MEDS: Albuterol/Ipratropium 3.0-0.5 MG/3 ML Neb Soln NEB SCH ×3 (05:31→17:21)
[2021-04-02] MEDS: predniSONE 20 MG Tab PO SCH (08:08)
[2021-04-02] MEDS: Rosuvastatin 10 MG Tab PO SCH (08:08)
[2021-04-02] MEDS: Loratadine 10 MG Tab PO SCH (08:08)
[2021-04-02] MEDS: Fluticasone Propionate Nasal Spray 16 GM Bottle NASBOTH SCH ×2 (08:09→20:31)
--- NOTE | 2021-04-02 10:54 | PCM.PN ---
- General Info Date of Service: 04/02/21 Functional Status: Reports: Pain Controlled, New Symptoms (wheezing ), Incentive Spirometry. Denies: Ambulating - Review of Systems General: Denies: Weakness, Night Sweats HEENT: Reports: No Symptoms Pulmonary: Reports: Shortness of Breath, Cough, Wheezing. Denies: Sputum Cardiovascular: Reports: Dyspnea on Exertion Gastrointestinal: Denies: Abdominal Pain Genitourinary: Reports: No Symptoms Musculoskeletal: Reports: No Symptoms Neurological: Reports: No Symptoms Psychiatric: Reports: No Symptoms - Patient Data Vitals - Most Recent: Last Vital Signs Temp 97.9 F 04/02/21 07:00 Pulse 90 04/02/21 07:00 Resp 20 04/02/21 07:00 BP 113/57 L 04/02/21 07:00 Pulse Ox 94 L 04/02/21 07:00 Weight - Most Recent: 247 lb 12.8 oz I&O - Last 24 Hours: Intake & Output 04/01/21 04/02/21 04/02/21 22:59 06:59 14:59 Intake Total 620 550 Output Total 1400 800 Balance -780 -250 Murali Results Last 24 Hours: Microbiology 03/31/21 11:45 Aerobic Blood Culture - Preliminary Blood - Venous NO GROWTH AFTER 1 DAY Anaerobic Blood Culture - Preliminary NO GROWTH AFTER 1 DAY 03/31/21 12:25 Aerobic Blood Culture - Preliminary Blood - Venous - Lab Draw NO GROWTH AFTER 1 DAY Anaerobic Blood Culture - Preliminary NO GROWTH AFTER 1 DAY Med Orders - Current: Current Medications Acetaminophen (Acetaminophen 325 Mg Tab) 650 mg PO Q4H PRN PRN Reason: analgesia/fever Albuterol (Albuterol 0.083% 2.5 Mg/3 Ml Neb Soln) 2.5 mg NEB Q4HRRT PRN PRN Reason: Shortness of Breath Albuterol/Ipratropium (Albuterol/Ipratropium 3.0-0.5 Mg/3 Ml Neb Soln) 3 ml NEB Q6H [facility] Last Admin: 04/02/21 05:31 Dose: 3 ml Documented by: Diclofenac Sodium (Diclofenac Sodium 1% Gel 100 Gm Tube) 1 gm TOP Q6H PRN PRN Reason: Pain Fluticasone Propionate (Fluticasone Propionate Nasal Soldier 16 Gm Bottle) 0 gm NASBOTH BID [facility] Last Admin: 04/02/21 08:09 Dose: 1 spray Documented by: Loratadine (Loratadine 10 Mg Tab) 10 mg PO DAILY [facility] Last Admin: 04/02/21 08:08 Dose: 10 mg Documented by: Melatonin (Melatonin 3 Mg Tab) 3 mg PO BEDTIME PRN PRN Reason: Insomnia Last Admin: 04/01/21 23:08 Dose: 3 mg Documented by: Prednisone (Prednisone 20 Mg Tab) 40 mg PO WITHBREAKFAST [facility] Last Admin: 04/02/21 08:08 Dose: 40 mg Documented by: Rosuvastatin Calcium (Rosuvastatin 10 Mg Tab) 10 mg PO DAILY [facility] Last Admin: 04/02/21 08:08 Dose: 10 mg Documented by: Sodium Chloride (Sodium Chloride 0.9% 10 Ml Syringe) 10 ml FLUSH Q8HR PRN PRN Reason: keep vein open Discontinued Medications Albuterol/Ipratropium (Albuterol/Ipratropium 3.0-0.5 Mg/3 Ml Neb Soln) 3 ml NEB ONETIME ONE Stop: 03/31/21 11:40 Last Admin: 03/31/21 11:46 Dose: 3 ml Documented by: Albuterol/Ipratropium (Albuterol/Ipratropium 3.0-0.5 Mg/3 Ml Neb Soln) 3 ml NEB Q4HRRT PRN PRN Reason: Shortness of Breath Last Admin: 04/01/21 08:29 Dose: 3 ml Documented by: Loratadine (Loratadine 10 Mg Tab) 10 mg PO ONETIME ONE Stop: 03/31/21 12:37 Last Admin: 03/31/21 12:56 Dose: 10 mg Documented by: Prednisone (Prednisone 10 Mg Tab) 40 mg PO ONETIME ONE Stop: 03/31/21 12:37 Last Admin: 03/31/21 12:56 Dose: 40 mg Documented by: - Exam Quality Assessment: Supplemental Oxygen General: Alert, Oriented, Mild Distress Lungs: Crackles, Wheezing (all chaudhary late exp) Cardiovascular: Regular Rhythm GI/Abdominal Exam: Normal Bowel Sounds, Soft (Female) Exam: Deferred Peripheral Pulses: 2+: Radial (L), Radial (R) Skin: Warm, Dry, Intact Psy/Mental Status: Alert, Normal Affect. No: Anxious - Patient Data Result Diagrams: 03/31/21 11:45 03/31/21 11:45 Murali Results Last 24 hrs: Microbiology 03/31/21 11:45 Aerobic Blood Culture - Preliminary Blood - Venous NO GROWTH AFTER 1 DAY Anaerobic Blood Culture - Preliminary NO GROWTH AFTER 1 DAY 03/31/21 12:25 Aerobic Blood Culture - Preliminary Blood - Venous - Lab Draw NO GROWTH AFTER 1 DAY Anaerobic Blood Culture - Preliminary NO GROWTH AFTER 1 DAY Sepsis Event Note - Evaluation Sepsis Screening Result: No Definite Risk - Focused Exam Vital Signs: Vital Signs Temp Pulse Resp BP Pulse Ox Pulse Ox 04/02/21 07:00 97.9 F 90 20 113/57 L 94 L 04/02/21 05:38 82 04/01/21 23:09 89 94 L 04/01/21 23:00 97.8 F 86 20 143/74 H 93 L - Problem List Review Problem List Initiated/Reviewed/Updated: Yes - My Orders Last 24 Hours: My Active Orders 04/02/21 10:20 ABG [BLOOD GAS ARTERIAL] [BG] Routine - Plan Plan:: HPI summary: Mrs. Ivy is a 70yoF with a history of hyperlipidemia who reported to the ED for progressive shortness of breath and cough. She notes several months of increasing shortness of breath and cough, which has especially worsened in the past week. She was seen to establish care with Keke Silva PA-C, on 03/13/21, and at that time had noted several weeks of shortness of breath for which she had CXR and echocardiogram performed, which were overall without suggestive etiology. She had previously been referred to pulmonology by prior PCP and is scheduled to be seen at [facility] on 05/01/21. She has since had ongoing worsening of dry cough, wheezing, and shortness of breath. Due to ongoing significant worsening, she was brought to the [facility] ED for further evaluation. She recently moved to [place] into an apartment in October 2019; prev iously lived in a single family home in [place]. Her , Adalberto, has also had worsening shortness of breath and cough over the past several months. 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 Etiology favors possible un derlying COPD and possible allergic versus environmental trigger. Recommended administration of prednisone 40mg and loratadine 10mg along with admission to observation status for further monitoring, workup, and management. 04/01/21: Persistent oxygen requirement as well as shortness of breath and cough, albeit with mild improvement with DuoNebs, prednisone, and loratadine. History elucidated to be more of a chronic concern in the past several months, with ongoing suspicion for environmental exposure. 04/02/2021; states she feels "slightly better" ongoing SOB with diffuse end-exp wheezes, chest CT demonstrates mild bronchialectasis LLB, no fever, ABG Alkalotic, Patient receiving Duo nebs with high-flow O2 Hospitalization problems and plan: # Acute hypoxic respiratory failure: No prior oxygen requirement. If infectious insult/component--likely viral/allergy # COPD, possible: Hyperinflation on CXR. No prior PFTs. # Allergic rhinitis # Possible environmental allergy or exposure: History of her and recently moving in October 2019 to [facility] and both having onset of progressive shortness of breath, wheezing, and cough since without other identifiable etiology. - VS q8h, I/O - Titrate oxygen to maintain saturations at at least 90% - Respiratory therapy assisting with home oxygen qualification testing; order sent to [facility] for home oxygen if needed at discharge - Incentive spirometry q1h while awake - Change nebulizer treatments to DuoNebs q6h scheduled with albuterol q6h prn - Continue prednisone 40mg daily - Continue loratadine 10mg daily - Start Flonase BID - CT chest to further assess for underlying bronchiectasis or other pulmonary process - Consider fungal testing to further elucidate etiology - Coordinate future PFTs to further evaluate prior to planned upcoming pulmonology appointment - Encourage looking into vent system and other possible culprits for environmental exposure at [facility] # Posterior L rib pain: Fitting with MSK strain from coughing. - Diclofenac topical, heat, and ice therapy to site Chronic, stable conditions: # Hyperlipidemia: Continue rosuvastatin. Hospitalization details: # FEN: No IVF. Admission electrolytes normal. Regular diet. # PPX: Enoxaparin for DVT ppx while in hospital. # Code status: FULL, admitted MD discussed with patient upon admission. # Emergency contact: , Adalberto. Daughter, Pam. # Disposition: Although the patient has been here 48 hours in OBS, she has high risk of readmission returning due to shortness of breath diffuse wheezing. Will assess baseline ABG status on RA x 30 minutes, attempt good sputum cx. --Consider placing Pt in RM with forced air when getting Duo nebs
[2021-04-02 11:21] LABS: O2 DELIVERY DEVICE ROOM AIR
[2021-04-02 11:22] LABS: PCO2 ARTERIAL 32 mmHG (35-45)
[2021-04-02 11:23] LABS: BASE EXCESS ARTERIAL 5 mmol/L (-2-3); BICARBONATE,ARTERIAL 27.6 mmol/L (22-26); O2 SATURATION ARTERIAL 86 % (95-98); PO2 ARTERIAL 44 mmHG (80-105)
[2021-04-03] MEDS: Albuterol/Ipratropium 3.0-0.5 MG/3 ML Neb Soln NEB SCH ×5 (00:15→23:08)
[2021-04-03] MEDS: Rosuvastatin 10 MG Tab PO SCH (08:28)
[2021-04-03] MEDS: Loratadine 10 MG Tab PO SCH (08:28)
[2021-04-03] MEDS: predniSONE 20 MG Tab PO SCH (08:28)
[2021-04-03] MEDS: Fluticasone Propionate Nasal Spray 16 GM Bottle NASBOTH SCH ×2 (08:30→20:42)
--- NOTE | 2021-04-03 08:51 | PCM.PN ---
- General Info Date of Service: 04/03/21 Functional Status: Reports: Pain Controlled, Tolerating Diet - Review of Systems General: Denies: Fever, Weakness HEENT: Reports: No Symptoms Pulmonary: Reports: Shortness of Breath, Cough, Wheezing. Denies: Sputum Cardiovascular: Reports: Dyspnea on Exertion. Denies: Chest Pain, Orthopnea, PND, Edema, Lightheadedness Gastrointestinal: Denies: Abdominal Pain, Constipation, Diarrhea, Nausea Genitourinary: Reports: No Symptoms Musculoskeletal: Reports: No Symptoms Skin: Reports: No Symptoms Neurological: Reports: No Symptoms Psychiatric: Reports: Anxiety - Patient Data Vitals - Most Recent: Last Vital Signs Temp 98.1 F 04/03/21 06:20 Pulse 73 04/03/21 06:20 Resp 18 04/03/21 06:20 BP 123/62 04/03/21 06:20 Pulse Ox 95 04/03/21 06:20 Weight - Most Recent: 247 lb 12.8 oz I&O - Last 24 Hours: Intake & Output 04/02/21 04/03/21 04/03/21 22:59 06:59 14:59 Intake Total 100 Balance 100 Lab Results Last 24 Hours: Laboratory Results - last 24 hr 04/02/21 Range/Units 11:15 ABG pH 7.54 H (7.35-7.45) ABG pCO2 32 L (35-45) mmHG ABG pO2 44 L (80-105) mmHG ABG HCO3 27.6 H (22-26) mmol/L ABG Total CO2 28 H (23-27) mmol/L ABG O2 Saturation 86 L (95-98) % ABG Base Excess 5 H (-2-3) mmol/L O2 Delivery Device Room air Murali Results Last 24 Hours: Microbiology 03/31/21 11:45 Aerobic Blood Culture - Preliminary Blood - Venous NO GROWTH AFTER 2 DAYS Anaerobic Blood Culture - Preliminary NO GROWTH AFTER 2 DAYS 03/31/21 12:25 Aerobic Blood Culture - Preliminary Blood - Venous - Lab Draw NO GROWTH AFTER 2 DAYS Anaerobic Blood Culture - Preliminary NO GROWTH AFTER 2 DAYS Med Orders - Current: Current Medications Acetaminophen (Acetaminophen 325 Mg Tab) 650 mg PO Q4H PRN PRN Reason: analgesia/fever Albuterol (Albuterol 0.083% 2.5 Mg/3 Ml Neb Soln) 2.5 mg NEB Q4HRRT PRN PRN Reason: Shortness of Breath Albuterol/Ipratropium (Albuterol/Ipratropium 3.0-0.5 Mg/3 Ml Neb Soln) 3 ml NEB Q6H [facility] Last Admin: 04/03/21 06:10 Dose: 3 ml Documented by: Diclofenac Sodium (Diclofenac Sodium 1% Gel 100 Gm Tube) 1 gm TOP Q6H PRN PRN Reason: Pain Fluticasone Propionate (Fluticasone Propionate Nasal [place] 16 Gm Bottle) 0 gm NASBOTH BID [facility] Last Admin: 04/03/21 08:30 Dose: 1 spray Documented by: Loratadine (Loratadine 10 Mg Tab) 10 mg PO DAILY [facility] Last Admin: 04/03/21 08:28 Dose: 10 mg Documented by: Melatonin (Melatonin 3 Mg Tab) 3 mg PO BEDTIME PRN PRN Reason: Insomnia Last Admin: 04/01/21 23:08 Dose: 3 mg Documented by: Prednisone (Prednisone 20 Mg Tab) 40 mg PO WITHBREAKFAST [facility] Last Admin: 04/03/21 08:28 Dose: 40 mg Documented by: Rosuvastatin Calcium (Rosuvastatin 10 Mg Tab) 10 mg PO DAILY [facility] Last Admin: 04/03/21 08:28 Dose: 10 mg Documented by: Sodium Chloride (Sodium Chloride 0.9% 10 Ml Syringe) 10 ml FLUSH Q8HR PRN PRN Reason: keep vein open Discontinued Medications Albuterol/Ipratropium (Albuterol/Ipratropium 3.0-0.5 Mg/3 Ml Neb Soln) 3 ml NEB ONETIME ONE Stop: 03/31/21 11:40 Last Admin: 03/31/21 11:46 Dose: 3 ml Documented by: Albuterol/Ipratropium (Albuterol/Ipratropium 3.0-0.5 Mg/3 Ml Neb Soln) 3 ml NEB Q4HRRT PRN PRN Reason: Shortness of Breath Last Admin: 04/01/21 08:29 Dose: 3 ml Documented by: Loratadine (Loratadine 10 Mg Tab) 10 mg PO ONETIME ONE Stop: 03/31/21 12:37 Last Admin: 03/31/21 12:56 Dose: 10 mg Documented by: Prednisone (Prednisone 10 Mg Tab) 40 mg PO ONETIME ONE Stop: 03/31/21 12:37 Last Admin: 03/31/21 12:56 Dose: 40 mg Documented by: - Exam Quality Assessment: Supplemental Oxygen, DVT Prophylaxis General: Alert, Oriented, Mild Distress Lungs: Wheezing. No: Crackles, Rales, Rhonchi, Rub, Stridor Cardiovascular: Tachycardia GI/Abdominal Exam: Normal Bowel Sounds, Soft (Female) Exam: Deferred Extremities: No Pedal Edema Peripheral Pulses: 2+: Radial (L), Radial (R) Skin: Warm, Dry, Intact Neurological: No New Focal Deficit Psy/Mental Status: Anxious - Patient Data Lab Results Last 24 hrs: Laboratory Results - last 24 hr 04/02/21 Range/Units 11:15 ABG pH 7.54 H (7.35-7.45) ABG pCO2 32 L (35-45) mmHG ABG pO2 44 L (80-105) mmHG ABG HCO3 27.6 H (22-26) mmol/L ABG Total CO2 28 H (23-27) mmol/L ABG O2 Saturation 86 L (95-98) % ABG Base Excess 5 H (-2-3) mmol/L O2 Delivery Device Room air Result Diagrams: 03/31/21 11:45 03/31/21 11:45 Murali Results Last 24 hrs: Microbiology 03/31/21 11:45 Aerobic Blood Culture - Preliminary Blood - Venous NO GROWTH AFTER 2 DAYS Anaerobic Blood Culture - Preliminary NO GROWTH AFTER 2 DAYS 03/31/21 12:25 Aerobic Blood Culture - Preliminary Blood - Venous - Lab Draw NO GROWTH AFTER 2 DAYS Anaerobic Blood Culture - Preliminary NO GROWTH AFTER 2 DAYS Sepsis Event Note - Evaluation Sepsis Screening Result: No Definite Risk - Focused Exam Vital Signs: Vital Signs Temp Pulse Resp BP Pulse Ox Pulse Ox 04/03/21 06:20 98.1 F 73 18 123/62 95 04/03/21 06:10 80 04/03/21 06:08 94 L 04/03/21 00:43 82 96 04/02/21 21:55 98.2 F 94 18 143/85 H 94 L - Problem List Review Problem List Initiated/Reviewed/Updated: Yes - My Orders Last 24 Hours: My Active Orders 04/02/21 12:41 Admission Status [Patient Status] [ADT] Routine - Plan Plan:: HPI summary: Mrs. Ivy is a 70yoF with a history of hyperlipidemia who reported to the ED for progressive shortness of breath and cough. She notes several months of increasing shortness of breath and cough, which has especially worsened in the past week. She was seen to establish care with Keke Silva PA-C, on 03/13/21, and at that time had noted several weeks of shortness of breath for which she had CXR and echocardiogram performed, which were overall without suggestive etiology. She had previously been referred to pulmonology by prior PCP and is scheduled to be seen at [facility] on 05/01/21. She has since had ongoing worsening of dry cough, wheezing, and shortness of breath. Due to ongoing significant worsening, she was brought to the [facility] ED for further evaluation. She recently moved to [place] into an apartment in October 2019; previously lived in a single family home in [place]. Her , Adalberto, has also had worsening shortness of breath and cough over the past several months. Addendum to above HPI data; although no history of cigarette smoking she farmed with previous , and sheltered workshop worker ~22 years in [email or web address] ED course: VS normal except for O2 <90% on room air, requiring 2lpm via nasal cannula to be 90% Appears short of breath and with audible wheezing CBC/CMP/lactic acid/BNP/D-dimer/troponin normal except for WBC low at 4.41 and AST elevated at 58 SARS-CoV-2 negative CXR without acute abnormality, but with hyperinflation suggesting COPD EKG NSR without ST-segment changes Given DuoNebs with improvement, but still with oxygen requirement Hospital course: Called for admission due to persistent hypoxia. Etiology favors possible underlying COPD and possible allergic versus environmental trigger. Recommended administration of prednisone 40mg and loratadine 10mg along with admission to observation status for further monitoring, workup, and management. 04/01/21: Persistent oxygen requirement as well as shortness of breath and cough, albeit with mild improvement with DuoNebs, prednisone, and loratadine. History elucidated to be more of a chronic concern in the past several months, with ongoing suspicion for environmental exposure. 04/02/2021; states she feels "slightly better" ongoing SOB with diffuse end-exp w heezes, chest CT demonstrates mild bronchialectasis LLB, no fever, ABG Alkalotic, Patient receiving Duo nebs with high-flow O2 04/03/2021; patient states slightly better slept fairly well however during her shower this morning on room air she became quite wheezy with tachycardia and tachypneic, no fever, no sputum production. Diffuse wheezing all chaudhary with spastic cough on slight inspiration. ABGs on room air yesterday demonstrated alkalotic picture possibly respiratory--may be mild anxious component and hyperventilation Hospitalization problems and plan: # Acute hypoxic respiratory failure: No prior oxygen requirement. If infectious insult/component--likely viral/allergy --Suspect uncompensated respiratory alkalosis--however patient is not tachypneic, possibly metabolic component however no renal disease. # COPD, possible: Hyperinflation on CXR. No prior PFTs. No Polycythemia to suggest chronic hypoxemia # Allergic rhinitis # Possible environmental allergy or exposure: History of her and recently moving in October 2019 to [facility] and both having onset of progressive shortness of breath, wheezing, and cough since without other identifiable etiology. - VS q8h, I/O - Titrate oxygen to maintain saturations at at least 90% - Respiratory therapy assisting with home oxygen qualification testing; order sent to [facility] for home oxygen if needed at discharge - Incentive spirometry q1h while awake - Change nebulizer treatments to DuoNebs q6h scheduled with albuterol q6h prn - Continue prednisone 40mg daily - Continue loratadine 10mg daily - Start Flonase BID - CT chest to further assess for underlying bronchiectasis or other pulmonary process - Consider fungal testing to further elucidate etiology - Coordinate future PFTs to further evaluate prior to planned upcoming pulmonology appointment - Encourage looking into vent system and other possible culprits for environmental exposure at apartment # Posterior L rib pain: Fitting with MSK strain from coughing. - Diclofenac topical, heat, and ice therapy to site Chronic, stable conditions: # Hyperlipidemia: Continue rosuvastatin. Hospitalization details: # FEN: No IVF. Admission electrolytes normal. Regular diet. # PPX: Enoxaparin for DVT ppx while in hospital. # Code status: FULL, admitted MD discussed with patient upon admission. # Emergency contact: , Adalberto. Daughter, Pam. Disposition/overall plan -- last night patient was placed into INPT status due to ongoing oxygen requirements, profuse wheezing and the need for ongoing monitoring of her cardiorespiratory status. --Add Robitussin --Add Pulmicort twice daily nebs --Due to her mild anxious component and hyperventilation resulting in respiratory alkalosis picture will administer low-dose as needed lorazepam --Will start azithromycin not necessarily for infectious etiology however may act as anti-inflammatory in her worsening acute COPD
[2021-04-03] MEDS ORDERED: Azithromycin 500 MG in Sodium Chloride 0.9% 250 ML IV ONE (09:47)
[2021-04-03] MEDS ORDERED: guaiFENesin/Dextromethorphan 100-10 MG/5 ML Soln 5 ML Cup PO PRN (10:14)
[2021-04-03] MEDS: Budesonide 0.5 MG/2 ML Neb Susp NEB SCH ×2 (10:15→20:42)
[2021-04-03] MEDS ORDERED: Sodium Chloride 0.9% 100 ML IV SCH (10:30)
[2021-04-03] MEDS ORDERED: Budesonide 0.5 MG/2 ML Neb Susp NEB SCH (20:00)
[2021-04-03] MEDS: LORazepam 0.5 MG Tab PO PRN (22:37)
[2021-04-04] MEDS: Albuterol/Ipratropium 3.0-0.5 MG/3 ML Neb Soln NEB SCH ×3 (05:55→17:31)
[2021-04-04] MEDS: Budesonide 0.5 MG/2 ML Neb Susp NEB SCH ×2 (07:35→20:38)
[2021-04-04 08:19] LABS: ANION GAP 11.7 mmol/L (5-15); CHLORIDE,CL 103 mmol/L (98-107); SODIUM,NA 140 mmol/L (136-145)
[2021-04-04] MEDS: predniSONE 20 MG Tab PO SCH (08:47)
[2021-04-04] MEDS: Fluticasone Propionate Nasal Spray 16 GM Bottle NASBOTH SCH ×2 (08:47→21:19)
[2021-04-04] MEDS: Loratadine 10 MG Tab PO SCH (08:47)
[2021-04-04] MEDS: Rosuvastatin 10 MG Tab PO SCH (08:48)
--- NOTE | 2021-04-04 10:03 | PCM.PN ---
- General Info Date of Service: 04/04/21 Functional Status: Reports: Pain Controlled, Tolerating Diet, Ambulating. Denies: New Symptoms - Review of Systems General: Denies: Fever, Weakness, Fatigue Pulmonary: Reports: Cough (robitussin has helped with cough however nocturnal cough) Cardiovascular: Reports: No Symptoms Gastrointestinal: Reports: No Symptoms Genitourinary: Reports: No Symptoms Musculoskeletal: Reports: No Symptoms Neurological: Denies: Confusion Psychiatric: Reports: Anxiety - Patient Data Vitals - Most Recent: Last Vital Signs Temp 97.4 F 04/04/21 06:32 Pulse 88 04/04/21 07:30 Resp 18 04/04/21 06:32 BP 112/64 04/04/21 06:32 Pulse Ox 94 L 04/04/21 07:30 Weight - Most Recent: 247 lb 12.8 oz I&O - Last 24 Hours: Intake & Output 04/03/21 04/04/21 04/04/21 22:59 06:59 14:59 Intake Total 420 350 Balance 420 350 Lab Results Last 24 Hours: Laboratory Results - last 24 hr 04/04/21 04/04/21 Range/Units 07:50 07:50 WBC 7.94 (5.00-10.00) 10^3/uL RBC 4.43 (3.80-5.50) 10^6/uL Hgb 13.9 (12.0-16.0) g/dL Hct 41.6 (37.0-47.0) % MCV 93.9 H (82.0-92.0) fL MCH 31.4 H (27.0-31.0) pg MCHC 33.4 (32.0-36.0) g/dL RDW 14.4 (11.5-14.5) % Plt Count 369 (150-400) 10^3/uL MPV 10.0 (7.4-10.4) fL Immature Gran % (Auto) 0.3 (0.0-5.0) % Neut % (Auto) 42.6 L (50.0-70.0) % Lymph % (Auto) 46.2 H (20.0-40.0) % [place] % (Auto) 10.1 H (2.0-8.0) % Eos % (Auto) 0.4 L (1.0-3.0) % Baso % (Auto) 0.4 (0.0-1.0) % Neut # (Auto) 3.39 (2.50-7.00) 10^3/uL Lymph # (Auto) 3.67 (1.00-4.00) 10^3/uL [place] # (Auto) 0.80 (0.10-0.80) 10^3/uL Eos # (Auto) 0.03 L (0.10-0.30) 10^3/uL Baso # (Auto) 0.03 (0.00-0.10) 10^3/uL Immature Gran # (Auto) 0.02 (0.00-0.50) 10^3/uL Sodium 140 (136-145) mmol/L Potassium 3.4 L (3.5-5.1) mmol/L Chloride 103 (98-107) mmol/L Carbon Dioxide 28.7 (21.0-32.0) mmol/L Anion Gap 11.7 (5-15) mmol/L BUN 12 (7-18) mg/dL Creatinine 0.58 (0.51-1.17) mg/dL Est Cr Clr Drug Dosing 84.49 mL/min Estimated GFR (MDRD) > 60 mL/min Glucose 90 (70-140) mg/dL Calcium 8.9 (8.7-10.3) mg/dL Murali Results Last 24 Hours: Microbiology 03/31/21 11:45 Aerobic Blood Culture - Preliminary Blood - Venous NO GROWTH AFTER 3 DAYS Anaerobic Blood Culture - Preliminary NO GROWTH AFTER 3 DAYS 03/31/21 12:25 Aerobic Blood Culture - Preliminary Blood - Venous - Lab Draw NO GROWTH AFTER 3 DAYS Anaerobic Blood Culture - Preliminary NO GROWTH AFTER 3 DAYS Med Orders - Current: Current Medications Acetaminophen (Acetaminophen 325 Mg Tab) 650 mg PO Q4H PRN PRN Reason: analgesia/fever Albuterol (Albuterol 0.083% 2.5 Mg/3 Ml Neb Soln) 2.5 mg NEB Q4HRRT PRN PRN Reason: Shortness of Breath Albuterol/Ipratropium (Albuterol/Ipratropium 3.0-0.5 Mg/3 Ml Neb Soln) 3 ml NEB Q6H [facility] Last Admin: 04/04/21 05:55 Dose: 3 ml Documented by: Budesonide (Budesonide 0.5 Mg/2 Ml Neb Susp) 0.5 mg NEB BIDRT [facility] Last Admin: 04/04/21 07:35 Dose: 0.5 mg Documented by: Diclofenac Sodium (Diclofenac Sodium 1% Gel 100 Gm Tube) 1 gm TOP Q6H PRN PRN Reason: Pain Fluticasone Propionate (Fluticasone Propionate Nasal [place] 16 Gm Bottle) 0 gm NASBOTH BID [facility] Last Admin: 04/04/21 08:47 Dose: 1 spray Documented by: Guaifenesin/Phenylephrine HCl (Guaifenesin/Dextromethorphan 100-10 Mg/5 Ml Soln 5 Ml Cup) 10 ml PO Q4H PRN PRN Reason: Cough Last Admin: 04/03/21 21:45 Dose: 10 ml Documented by: Sodium Chloride (Normal Saline) 100 mls @ 50 mls/hr IV ASDIRECTED [facility] Last Admin: 04/03/21 10:41 Dose: 50 mls/hr Documented by: Loratadine (Loratadine 10 Mg Tab) 10 mg PO DAILY [facility] Last Admin: 04/04/21 08:47 Dose: 10 mg Documented by: Lorazepam (Lorazepam 0.5 Mg Tab) 0.5 mg PO Q12H PRN PRN Reason: hyperventilation Last Admin: 04/03/21 22:37 Dose: 0.5 mg Documented by: Melatonin (Melatonin 3 Mg Tab) 3 mg PO BEDTIME PRN PRN Reason: Insomnia Last Admin: 04/01/21 23:08 Dose: 3 mg Documented by: Prednisone (Prednisone 20 Mg Tab) 40 mg PO WITHBREAKFAST [facility] Last Admin: 04/04/21 08:47 Dose: 40 mg Documented by: Rosuvastatin Calcium (Rosuvastatin 10 Mg Tab) 10 mg PO DAILY [facility] Last Admin: 04/04/21 08:48 Dose: 10 mg Documented by: Sodium Chloride (Sodium Chloride 0.9% 10 Ml Syringe) 10 ml FLUSH Q8HR PRN PRN Reason: keep vein open Discontinued Medications Albuterol/Ipratropium (Albuterol/Ipratropium 3.0-0.5 Mg/3 Ml Neb Soln) 3 ml NEB ONETIME ONE Stop: 03/31/21 11:40 Last Admin: 03/31/21 11:46 Dose: 3 ml Documented by: Albuterol/Ipratropium (Albuterol/Ipratropium 3.0-0.5 Mg/3 Ml Neb Soln) 3 ml NEB Q4HRRT PRN PRN Reason: Shortness of Breath Last Admin: 04/01/21 08:29 Dose: 3 ml Documented by: Budesonide (Budesonide 0.5 Mg/2 Ml Neb Susp) 0.5 mg NEB BIDRT [facility] Azithromycin 500 mg/ Sodium (Chloride) 250 mls @ 250 mls/hr IV ONETIME ONE Stop: 04/03/21 10:46 Last Admin: 04/03/21 10:41 Dose: 250 mls/hr Documented by: Loratadine (Loratadine 10 Mg Tab) 10 mg PO ONETIME ONE Stop: 03/31/21 12:37 Last Admin: 03/31/21 12:56 Dose: 10 mg Documented by: Prednisone (Prednisone 10 Mg Tab) 40 mg PO ONETIME ONE Stop: 03/31/21 12:37 Last Admin: 03/31/21 12:56 Dose: 40 mg Documented by: - Exam Quality Assessment: Supplemental Oxygen General: Alert, Oriented. No: Mild Distress Lungs: Wheezing. No: Decreased Breath Sounds Cardiovascular: Regular Rate, Regular Rhythm. No: Tachycardia (Female) Exam: Deferred Extremities: No Pedal Edema Peripheral Pulses: 2+: Radial (L), Radial (R) Skin: Warm, Dry, Intact Neurological: No New Focal Deficit Psy/Mental Status: Alert, Normal Affect, Normal Mood - Patient Data Lab Results Last 24 hrs: Laboratory Results - last 24 hr 04/04/21 04/04/21 Range/Units 07:50 07:50 WBC 7.94 (5.00-10.00) 10^3/uL RBC 4.43 (3.80-5.50) 10^6/uL Hgb 13.9 (12.0-16.0) g/dL Hct 41.6 (37.0-47.0) % MCV 93.9 H (82.0-92.0) fL MCH 31.4 H (27.0-31.0) pg MCHC 33.4 (32.0-36.0) g/dL RDW 14.4 (11.5-14.5) % Plt Count 369 (150-400) 10^3/uL MPV 10.0 (7.4-10.4) fL Immature Gran % (Auto) 0.3 (0.0-5.0) % Neut % (Auto) 42.6 L (50.0-70.0) % Lymph % (Auto) 46.2 H (20.0-40.0) % [place] % (Auto) 10.1 H (2.0-8.0) % Eos % (Auto) 0.4 L (1.0-3.0) % Baso % (Auto) 0.4 (0.0-1.0) % Neut # (Auto) 3.39 (2.50-7.00) 10^3/uL Lymph # (Auto) 3.67 (1.00-4.00) 10^3/uL [place] # (Auto) 0.80 (0.10-0.80) 10^3/uL Eos # (Auto) 0.03 L (0.10-0.30) 10^3/uL Baso # (Auto) 0.03 (0.00-0.10) 10^3/uL Immature Gran # (Auto) 0.02 (0.00-0.50) 10^3/uL Sodium 140 (136-145) mmol/L Potassium 3.4 L (3.5-5.1) mmol/L Chloride 103 (98-107) mmol/L Carbon Dioxide 28.7 (21.0-32.0) mmol/L Anion Gap 11.7 (5-15) mmol/L BUN 12 (7-18) mg/dL Creatinine 0.58 (0.51-1.17) mg/dL Est Cr Clr Drug Dosing 84.49 mL/min Estimated GFR (MDRD) > 60 mL/min Glucose 90 (70-140) mg/dL Calcium 8.9 (8.7-10.3) mg/dL Result Diagrams: 04/04/21 07:50 04/04/21 07:50 Murali Results Last 24 hrs: Microbiology 03/31/21 11:45 Aerobic Blood Culture - Preliminary Blood - Venous NO GROWTH AFTER 3 DAYS Anaerobic Blood Culture - Preliminary NO GROWTH AFTER 3 DAYS 03/31/21 12:25 Aerobic Blood Culture - Preliminary Blood - Venous - Lab Draw NO GROWTH AFTER 3 DAYS Anaerobic Blood Culture - Preliminary NO GROWTH AFTER 3 DAYS Sepsis Event Note - Evaluation Sepsis Screening Result: No Definite Risk - Focused Exam Vital Signs: Vital Signs Temp Pulse Resp BP Pulse Ox Pulse Ox 04/04/21 07:30 88 94 L 04/04/21 06:32 97.4 F 69 18 112/64 95 04/04/21 06:10 88 94 L 04/04/21 06:05 94 L 04/03/21 23:15 82 93 L 04/03/21 22:55 97.8 F 83 20 120/71 96 - Problem List Review Problem List Initiated/Reviewed/Updated: Yes - My Orders Last 24 Hours: My Active Orders 04/03/21 09:26 RT Aerosol Therapy [RC] ASDIRECTED 04/03/21 09:53 LORazepam [Ativan] 0.5 mg PO Q12H PRN 04/03/21 10:00 Budesonide [Pulmicort] 0.5 mg NEB BIDRT 04/03/21 10:14 Dextromethorphan/guaiFENesin [Robitussin DM] 10 ml PO Q4H PRN 04/03/21 10:30 Sodium Chloride 0.9% [Normal Saline] 100 ml IV ASDIRECTED - Plan Plan:: HPI summary: Mrs. Ivy is a 70yoF with a history of hyperlipidemia who reported to the ED for progressive shortness of breath and cough. She notes several months of increasing shortness of breath and cough, which has especially worsened in the past week. She was seen to establish care with Keke Silva PA-C, on 03/13/21, and at that time had noted several weeks of shortness of breath for which she had CXR and echocardiogram performed, which were overall without suggestive etiology. She had previously been referred to pulmonology by prior PCP and is scheduled to be seen at [facility] on 05/01/21. She has since had ongoing worsening of dry cough, wheezing, and shortness of breath. Due to ongoing significant worsening, she was brought to the [facility] ED for further evaluation. She recently moved to [place] into an apartment in October 2019; previously lived in a single family home in [place]. Her , Adalberto, has also had worsening shortness of breath and cough over the past several months. 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 Etiology favors possible underlying COPD and possible allergic versus environmental trigger. Recommended administration of prednisone 40mg and loratadine 10mg along with admission to observation status for further monitoring, workup, and management. 04/01/21: Persistent oxygen requirement as well as shortness of breath and cough, albeit with mild improvement with DuoNebs, prednisone, and loratadine. History elucidated to be more of a chronic concern in the past several months, with ongoing suspicion for environmental exposure. 04/02/2021; states she feels "slightly better" ongoing SOB with diffuse end-exp wheezes, chest CT demonstrates mild bronchialectasis LLB, no fever, ABG Alkalotic, Patient receiving Duo nebs with high-flow O2 04/03/2021; patient states slightly better slept fairly well however during her shower this morning on room air she became quite wheezy with tachycardia and tachypneic, no fever, no sputum production. Diffuse wheezing all chaudhary with spastic cough on slight inspiration. ABGs on room air yesterday demonstrated alkalotic picture possibly respiratory--may be mild anxious component and hy perventilation 04/04/2021; ongoing cough and wheezing however not as bad as yesterday, slept well however nocturnal cough, Robitussin appears to be effective during the day. Lorazepam seemed to calm her down with less hyperventilation, less labored breathing, SaO2 94% 2 L, has been trialed fairly well on room air however not able to wean fully at this time. Hospitalization problems and plan: # Acute hypoxic respiratory failure: No prior oxygen requirement. Likely inf lammatory/allerty --Suspect uncompensated respiratory alkalosis--however patient is not tachypneic, possibly metabolic component however no renal disease. # COPD, possible: Hyperinflation on CXR. No prior PFTs. No Polycythemia to suggest chronic hypoxemia # Allergic rhinitis # Possible environmental allergy or exposure: History of her and recently moving in October 2019 to apartment and both having onset of progressive shortness of breath, wheezing, and cough since without other identifiable etiology. - VS q8h, I/O - Titrate oxygen to maintain saturations at at least 90% - Respiratory therapy assisting with home oxygen qualification testing; order sent to [facility] for home oxygen if needed at discharge - Incentive spirometry q1h while awake - Change nebulizer treatments to DuoNebs q6h scheduled with albuterol q6h prn - Continue prednisone 40mg daily - Continue loratadine 10mg daily - Start Flonase BID - CT chest to further assess for underlying bronchiectasis or other pulmonary process - Consider fungal testing to further elucidate etiology - Coordinate future PFTs to further evaluate prior to planned upcoming pulmonology appointment - Encourage looking into vent system and other possible culprits for environmental exposure at apartment # Posterior L rib pain: Fitting with MSK strain from coughing. - Diclofenac topical, heat, and ice therapy to site Chronic, stable conditions: # Hyperlipidemia: Continue rosuvastatin. Hospitalization details: # FEN: No IVF. Admission electrolytes normal, slighty hypokalemia, Regular diet. # PPX: Enoxaparin for DVT ppx while in hospital. # Code status: FULL, admitted MD discussed with patient upon admission. # Emergency contact: , Adalberto. Daughter, Pam. Disposition/overall plan --Patient meets ongoing INPT status due to ongoing oxygen requirements, however wheezing and her respiratory status has improved. --Add Robitussin, during the day, Cheratussin 1 time at bedtime however avoid concomitent use with lorazepam --Cont with Pulmicort nebs (Day #2) --Add low dose K+ PO --Add Famotidine since now on K+/prednisone and was removed from PPI on admission --Cont azithromycin however changed to PO (as anti-inflammatory)
[2021-04-04] MEDS ORDERED: Famotidine 20 MG Tab PO ONE (10:05)
[2021-04-04] MEDS: Potassium Chloride 10 MEQ Tab.ER PO SCH (11:02)
[2021-04-04] MEDS: Azithromycin 250 MG Tab PO SCH (11:02)
[2021-04-04] MEDS ORDERED: Codeine/guaiFENesin 10-100 MG/5 ML Syrup 5 ML Cup PO ONE (22:00)
[2021-04-05] MEDS: LORazepam 0.5 MG Tab PO PRN ×2 (00:14→22:33)
[2021-04-05] MEDS: Albuterol/Ipratropium 3.0-0.5 MG/3 ML Neb Soln NEB SCH ×2 (00:14→05:35)
[2021-04-05] MEDS: Budesonide 0.5 MG/2 ML Neb Susp NEB SCH ×2 (07:15→19:34)
[2021-04-05] MEDS: predniSONE 20 MG Tab PO SCH (08:06)
[2021-04-05] MEDS: Rosuvastatin 10 MG Tab PO SCH (09:12)
[2021-04-05] MEDS: Potassium Chloride 10 MEQ Tab.ER PO SCH (09:12)
[2021-04-05] MEDS: Fluticasone Propionate Nasal Spray 16 GM Bottle NASBOTH SCH ×2 (09:12→20:49)
[2021-04-05] MEDS: Loratadine 10 MG Tab PO SCH (09:12)
[2021-04-05] MEDS: Azithromycin 250 MG Tab PO SCH (09:13)
--- NOTE | 2021-04-05 09:40 | PCM.PN ---
- General Info Date of Service: 04/05/21 Functional Status: Reports: Pain Controlled, Tolerating Diet, Ambulating, Incentive Spirometry - Review of Systems General: Denies: Fever, Weakness, Fatigue, Malaise HEENT: Reports: No Symptoms Pulmonary: Reports: Shortness of Breath, Cough (Much improved ) Cardiovascular: Denies: Edema Gastrointestinal: Reports: No Symptoms Genitourinary: Reports: No Symptoms Musculoskeletal: Reports: No Symptoms Skin: Reports: No Symptoms Neurological: Reports: No Symptoms Psychiatric: Reports: No Symptoms - Patient Data Vitals - Most Recent: Last Vital Signs Temp 97.8 F 04/05/21 06:05 Pulse 88 04/05/21 07:15 Resp 20 04/05/21 06:05 BP 132/61 04/05/21 06:05 Pulse Ox 92 L 04/05/21 08:30 Weight - Most Recent: 247 lb 12.8 oz I&O - Last 24 Hours: Intake & Output 04/04/21 04/05/21 04/05/21 22:59 06:59 14:59 Intake Total 1200 50 Balance 1200 50 Murali Results Last 24 Hours: Microbiology 03/31/21 11:45 Aerobic Blood Culture - Preliminary Blood - Venous NO GROWTH AFTER 4 DAYS Anaerobic Blood Culture - Preliminary NO GROWTH AFTER 4 DAYS 03/31/21 12:25 Aerobic Blood Culture - Preliminary Blood - Venous - Lab Draw NO GROWTH AFTER 4 DAYS Anaerobic Blood Culture - Preliminary NO GROWTH AFTER 4 DAYS Med Orders - Current: Current Medications Acetaminophen (Acetaminophen 325 Mg Tab) 650 mg PO Q4H PRN PRN Reason: analgesia/fever Albuterol (Albuterol 0.083% 2.5 Mg/3 Ml Neb Soln) 2.5 mg NEB Q4HRRT PRN PRN Reason: Shortness of Breath Last Admin: 04/05/21 08:40 Dose: 2.5 mg Documented by: Albuterol/Ipratropium (Albuterol/Ipratropium 3.0-0.5 Mg/3 Ml Neb Soln) 3 ml NEB Q6H KIM Last Admin: 04/05/21 05:35 Dose: 3 ml Documented by: Azithromycin (Azithromycin 250 Mg Tab) 250 mg PO DAILY KIM Last Admin: 04/05/21 09:13 Dose: 250 mg Documented by: Budesonide (Budesonide 0.5 Mg/2 Ml Neb Susp) 0.5 mg NEB BIDRT [facility] Last Admin: 04/05/21 07:15 Dose: 0.5 mg Documented by: Diclofenac Sodium (Diclofenac Sodium 1% Gel 100 Gm Tube) 1 gm TOP Q6H PRN PRN Reason: Pain Fluticasone Propionate (Fluticasone Propionate Nasal [place] 16 Gm Bottle) 0 gm NASBOTH BID [facility] Last Admin: 04/05/21 09:12 Dose: 1 spray Documented by: Guaifenesin/Phenylephrine HCl (Guaifenesin/Dextromethorphan 100-10 Mg/5 Ml Soln 5 Ml Cup) 10 ml PO Q4H PRN PRN Reason: Cough Last Admin: 04/03/21 21:45 Dose: 10 ml Documented by: Sodium Chloride (Normal Saline) 100 mls @ 50 mls/hr IV ASDIRECTED [facility] Last Admin: 04/03/21 10:41 Dose: 50 mls/hr Documented by: Loratadine (Loratadine 10 Mg Tab) 10 mg PO DAILY [facility] Last Admin: 04/05/21 09:12 Dose: 10 mg Documented by: Lorazepam (Lorazepam 0.5 Mg Tab) 0.5 mg PO Q12H PRN PRN Reason: hyperventilation Last Admin: 04/05/21 00:14 Dose: 0.5 mg Documented by: Melatonin (Melatonin 3 Mg Tab) 3 mg PO BEDTIME PRN PRN Reason: Insomnia Last Admin: 04/01/21 23:08 Dose: 3 mg Documented by: Potassium Chloride (Potassium Chloride 10 Meq Tab.Er) 10 meq PO DAILY [facility] Last Admin: 04/05/21 09:12 Dose: 10 meq Documented by: Prednisone (Prednisone 20 Mg Tab) 40 mg PO WITHBREAKFAST [facility] Last Admin: 04/05/21 08:06 Dose: 40 mg Documented by: Rosuvastatin Calcium (Rosuvastatin 10 Mg Tab) 10 mg PO DAILY [facility] Last Admin: 04/05/21 09:12 Dose: 10 mg Documented by: Sodium Chloride (Sodium Chloride 0.9% 10 Ml Syringe) 10 ml FLUSH Q8HR PRN PRN Reason: keep vein open Discontinued Medications Albuterol/Ipratropium (Albuterol/Ipratropium 3.0-0.5 Mg/3 Ml Neb Soln) 3 ml NEB ONETIME ONE Stop: 03/31/21 11:40 Last Admin: 03/31/21 11:46 Dose: 3 ml Documented by: Albuterol/Ipratropium (Albuterol/Ipratropium 3.0-0.5 Mg/3 Ml Neb Soln) 3 ml NEB Q4HRRT PRN PRN Reason: Shortness of Breath Last Admin: 04/01/21 08:29 Dose: 3 ml Documented by: Budesonide (Budesonide 0.5 Mg/2 Ml Neb Susp) 0.5 mg NEB BIDRT KIM Famotidine (Famotidine 20 Mg Tab) 20 mg PO ONETIME ONE Stop: 04/04/21 10:06 Last Admin: 04/04/21 11:02 Dose: 20 mg Documented by: Guaifenesin/Codeine Phosphate (Codeine/Guaifenesin 10-100 Mg/5 Ml Syrup 5 Ml Cup) 5 ml PO ONETIME ONE Stop: 04/04/21 22:01 Last Admin: 04/04/21 21:19 Dose: 5 ml Documented by: Azithromycin 500 mg/ Sodium (Chloride) 250 mls @ 250 mls/hr IV ONETIME ONE Stop: 04/03/21 10:46 Last Admin: 04/03/21 10:41 Dose: 250 mls/hr Documented by: Loratadine (Loratadine 10 Mg Tab) 10 mg PO ONETIME ONE Stop: 03/31/21 12:37 Last Admin: 03/31/21 12:56 Dose: 10 mg Documented by: Prednisone (Prednisone 10 Mg Tab) 40 mg PO ONETIME ONE Stop: 03/31/21 12:37 Last Admin: 03/31/21 12:56 Dose: 40 mg Documented by: - Exam Quality Assessment: Supplemental Oxygen, DVT Prophylaxis General: Alert, Oriented, Cooperative, No Acute Distress Lungs: Wheezing (much improved) Cardiovascular: Regular Rate, Regular Rhythm GI/Abdominal Exam: Soft (Female) Exam: Deferred Back Exam: No: CVA Tenderness (R) Extremities: No Pedal Edema Peripheral Pulses: 2+: Radial (L), Radial (R) Skin: Warm, Dry, Intact Neurological: No New Focal Deficit Psy/Mental Status: Alert, Normal Affect, Normal Mood - Patient Data Result Diagrams: 04/04/21 07:50 04/04/21 07:50 Murali Results Last 24 hrs: Microbiology 03/31/21 11:45 Aerobic Blood Culture - Preliminary Blood - Venous NO GROWTH AFTER 4 DAYS Anaerobic Blood Culture - Preliminary NO GROWTH AFTER 4 DAYS 03/31/21 12:25 Aerobic Blood Culture - Preliminary Blood - Venous - Lab Draw NO GROWTH AFTER 4 DAYS Anaerobic Blood Culture - Preliminary NO GROWTH AFTER 4 DAYS Sepsis Event Note - Evaluation Sepsis Screening Result: No Definite Risk - Focused Exam Vital Signs: Vital Signs Temp Pulse Resp BP Pulse Ox Pulse Ox Pulse Ox 04/05/21 08:30 92 L 04/05/21 07:45 91 L 04/05/21 07:15 88 94 L 04/05/21 06:05 97.8 F 87 20 132/61 93 L 04/05/21 05:35 96 94 L 04/05/21 05:33 94 L 04/05/21 00:44 92 95 04/04/21 23:00 98.4 F 72 20 125/76 95 - Problem List Review Problem List Initiated/Reviewed/Updated: Yes - My Orders Last 24 Hours: My Active Orders 04/04/21 10:15 Azithromycin [Zithromax] 250 mg PO DAILY Potassium Chloride [Klor-Con 10] 10 meq PO DAILY 04/04/21 11:49 Accu Check [Blood Glucose Check, Bedside] [RC] DAILY 04/04/21 21:00 Communication Order [RC] DAILY - Plan Plan:: HPI summary: Mrs. Ivy is a 70yoF with a history of hyperlipidemia who reported to the ED for progressive shortness of breath and cough. She notes several months of increasing shortness of breath and cough, which has especially worsened in the past week. She was seen to establish care with Keke Silva PA-C, on 03/13/21, and at that time had noted several weeks of shortness of breath for which she had CXR and echocardiogram performed, which were overall without suggestive etiology. She had previously been referred to pulmonology by prior PCP and is scheduled to be seen at [facility]monology on 05/01/21. She has since had ongoing worsening of dry cough, wheezing, and shortness of breath. Due to ongoing significant worsening, she was brought to the [facility] ED for further evaluation. She recently moved to [place] into an apartment in October 2019; previously lived in a single family home in [place]. Her , Adalberto, has also had worsening shortness of breath and cough over the past several months. 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 Etiology favors possible underlying COPD and possible allergic versus environmental trigger. Recommended administration of prednisone 40mg and loratadine 10mg along with admission to observation status for further monitoring, workup, and management. 04/01/21: Persistent oxygen requirement as well as shortness of breath and cough, albeit with mild improvement with DuoNebs, prednisone, and loratadine. History elucidated to be more of a chronic concern in the past several months, with ongoing suspicion for environmental exposure. 04/02/2021; states she feels "slightly better" ongoing SOB with diffuse end-exp wheezes, chest CT demonstrates mild bronchialectasis LLB, no fever, ABG [place] ic, Patient receiving Duo nebs with high-flow O2 04/03/2021; patient states slightly better slept fairly well however during her shower this morning on room air she became quite wheezy with tachycardia and tachypneic, no fever, no sputum production. Diffuse wheezing all chaudhary with spastic cough on slight inspiration. ABGs on room air yesterday demonstrated alkalotic picture possibly respiratory--may be mild anxious component and hyperventilation 04/04/2021; ongoing cough and wheezing however not as bad as yesterday, slept well however nocturnal cough, Robitussin appears to be effective during the day. Lorazepam seemed to calm her down with less hyperventilation, less labored breathing, SaO2 94% 2 L, has been trialed fairly well on room air however not able to wean fully at this time. Hospitalization problems and plan: # Acute hypoxic respiratory failure: No prior oxygen requirement. Likely inflammatory/allerty --Suspect uncompensated respiratory alkalosis--however patient is not tachypneic, possibly metabolic component however no renal disease. # COPD, possible: Hyperinflation on CXR. No prior PFTs. No Polycythemia to suggest chronic hypoxemia # Allergic rhinitis # Possible environmental allergy or exposure: History of her and recently moving in October 2019 to apartment and both having onset of progressive shortness of breath, wheezing, and cough since without other identifiable etiology. - VS q8h, I/O - Titrate oxygen to maintain saturations at at least 90% - Respiratory therapy assisting with home oxygen qualification testing; order sent to [facility] for home oxygen if needed at discharge - Incentive spirometry q1h while awake - Change nebulizer treatments to DuoNebs q6h scheduled with albuterol q6h prn - Continue prednisone 40mg daily - Continue loratadine 10mg daily - Start Flonase BID - CT chest to further assess for underlying bronchiectasis or other pulmonary process - Consider fungal testing to further elucidate etiology - Coordinate future PFTs to further evaluate prior to planned upcoming pulmo nology appointment - Encourage looking into vent system and other possible culprits for environmental exposure at apartment # Posterior L rib pain: Fitting with MSK strain from coughing. - Diclofenac topical, heat, and ice therapy to site Chronic, stable conditions: # Hyperlipidemia: Continue rosuvastatin. Hospitalization details: # FEN: No IVF. Admission electrolytes normal, slighty hypokalemia, Regular diet. # PPX: Enoxaparin for DVT ppx while in hospital. # Code status: FULL, admitted MD discussed with patient upon admission. # Emergency contact: , Adalberto. Daughter, Pam. Disposition/overall plan --Patient meets ongoing INPT status due tapering down on Oxygen, Resp status is improving. --DC Duonebs suspect Ipratropium contributable to go spasm/cough, add mono albuterol nebulizers --Cont Robitussin--changed to scheduled during the day, Cheratussin x1 HS however avoid concomitent use with lorazepam --Cont with Pulmicort nebs (Day #3) --Added Famotidine since now on K+/prednisone and was removed from PPI on admission --Cont azithromycin (as anti-inflammatory) --Today appears to be a clinical turnaround point for patient, anticipate discharge in a.m. with spouse --Staff to contact [facility] for home oxygen if needed at discharge however uncertain if she will quality and will depend on how she does on RA today
[2021-04-05] MEDS: guaiFENesin/Dextromethorphan 100-10 MG/5 ML Soln 5 ML Cup PO SCH ×3 (10:38→20:49)
[2021-04-05] MEDS: Albuterol 0.083% 2.5 MG/3 ML Neb Soln NEB SCH ×3 (11:29→22:33)
[2021-04-05] MEDS: Melatonin 3 MG Tab PO PRN (20:49)
[2021-04-06] MEDS: guaiFENesin/Dextromethorphan 100-10 MG/5 ML Soln 5 ML Cup PO SCH ×2 (04:20→09:28)
[2021-04-06] MEDS: Albuterol 0.083% 2.5 MG/3 ML Neb Soln NEB SCH ×2 (04:21→11:12)
[2021-04-06] MEDS: Budesonide 0.5 MG/2 ML Neb Susp NEB SCH (08:29)
[2021-04-06] MEDS: Potassium Chloride 10 MEQ Tab.ER PO SCH (08:30)
[2021-04-06] MEDS: Fluticasone Propionate Nasal Spray 16 GM Bottle NASBOTH SCH (08:30)
[2021-04-06] MEDS: Loratadine 10 MG Tab PO SCH (08:30)
[2021-04-06] MEDS: predniSONE 20 MG Tab PO SCH (08:31)
[2021-04-06] MEDS: Rosuvastatin 10 MG Tab PO SCH (08:31)
[2021-04-06] MEDS: Azithromycin 250 MG Tab PO SCH (08:31)
[2021-04-06 09:09] LABS: ANION GAP 12.8 mmol/L (5-15); CHLORIDE,CL 99 mmol/L (98-107); SODIUM,NA 137 mmol/L (136-145)
--- NOTE | 2021-04-06 11:35 | PCM.DCSUM1 ---
Discharge Summary - Hospital Course Free Text/Narrative:: Date of admission: 03/31/21 Date of discharge: 04/06/21 Admission diagnoses: # Acute hypoxic respiratory failure: No prior oxygen requirement. Likely inflammatory/allergic etiology; resolved. Oxygen saturation adequate on room air. --Suspect uncompensated respiratory alkalosis--however patient is not tachypneic, possibly metabolic component. pH 7.54 on ABG (04/02/21) # COPD, possible: Hyperinflation on CXR. No prior PFTs. No Polycythemia to suggest chronic hypoxemia # Allergic rhinitis # Possible environmental allergy or exposure: History of [facility] and both having onset of progressive shortness of breath, wheezing, and cough since without other identifiable etiology. # Posterior L rib pain: Fitting with MSK strain from coughing; improved. Discharge diagnoses: # COPD (probable) with mild exacerbation: Continue pulmicort BID, complete course of azithromycin x 2 days upon discharge, taper prednisone 30mg x 2 days, 20mg x 2 days, 10mg x 2 days, then stop; albuterol Q4-6H PRN. Continue incentive spirometry. # Hyperlipidemia: Continue rosuvastatin. # Allergic rhinitis: Continue loratidine 10mg PO daily, flonase PRN HPI summary: Mrs. Ivy is a 70yF with a history of hyperlipidemia who reported to the ED for progressive shortness of breath and cough. She notes several months of in creasing symptoms, which has further worsened in the past week. She was seen to establish care with Keke Silva PA-C, on 03/13/21, and at that time had noted several weeks of shortness of breath for which she had CXR and echocardiogram performed, which were overall without suggestive etiology. She had previously been referred to pulmonology by prior PCP and is scheduled to be seen at [facility] on 05/01/21. She has since had ongoing worsening of dry cough, wheezing, and shortness of breath. Due to ongoing significant worsening, she was brought to the [facility] ED for further evaluation. She recently moved to [place] into an apartment; previously lived in a single family home in [place]. Her , Adalberto, has also had worsening shortness of breath and cough over the past several months. Possible environmental exposure suspected due to onset of symptoms after moving to the apartment and the presence of increased symptoms in both spouses. ED course: VS normal except for O2 <90% on room air, requiring 2lpm via nasal cannula to be > 90% Appeared hort of breath and with audible wheezing CBC/CMP/lactic acid/BNP/D-dimer/troponin normal except for WBC low at 4.41 and AST elevated at 58 COVID negative CXR without acute abnormality, but with hyperinflation suggesting COPD (no prior dx) EKG NSR without ST-segment changes Given DuoNebs with improvement, but still with oxygen requirement which prompted request for admission. Hospital course: call center operator provider called for admission due to persistent hypoxia. Etiology favors possible underlying COPD and possible allergic versus environmental trigger. Initiated administration of prednisone 40mg and loratadine 10mg along with admission to observation status for further monitoring, workup, and management. 04/01/21: Persistent oxygen requirement as well as shortness of breath and cough, albeit with mild improvement with DuoNebs, prednisone, and loratadine. History elucidated to be more of a chronic concern in the past several months, with ongoing suspicion for environmental exposure. 04/02/21: states she feels "slightly better" ongoing SOB with diffuse end-exp wheezes, chest CT demonstrates mild bronchiectasis LLB, no fever, ABG Alkalotic pH 7.54, Patient receiving Duo nebs with high-flow O2 04/03/21: patient states slightly better slept fairly well however during her shower this morning on room air she became quite wheezy with tachycardia and tachypnia, no fever, no sputum production. Diffuse wheezing all chaudhary with spastic cough on slight inspiration. ABGs on room air yesterday demonstrated alkalotic picture possibly respiratory--may be mild anxious component and hyperventilation 04/04/21: ongoing cough and wheezing improved, slept well however nocturnal cough, Robitussin appears to be effective during the day. Lorazepam seemed to calm her down with less hyperventilation, less labored breathing, SaO2 94% 2 L, has been trialed fairly well on room air however not able to wean fully at this time. 04/06/21: Patient endorsed feeling much better today, she is looking forward to going home with her . Occasional productive cough persists with mild SOB with coughing episodes. Lung sounds diminished, exam otherwise unremarkable. The venting in their apartment was thoroughly cleaned on 04/05/21 prior to planned discharge today due to concern for environmental exposure as partial etiology of initial symptoms, however there does appear to be possible COPD underlying which was previously undiagnosed; patient to continue PRN albuterol and pulmicort BID. No oxygen requirements prior to discharge today. Patient to complete full course of azithromycin and will taper prednisone upon discharge. Patient denies need to continue benzo upon discharge home, no Rx to be provided. Discharge and follow-up recommendations: - Discharge to home per self care with - New medications at discharge: Pulmicort BID, albuterol PRN. Azithromycin x 2 doses, taper prednisone as above. Loratidine 10mg PO daily, flonase PRN. - Follow-up with Keke Silva PA-C on 04/10/21; PFT's prior to planned pulmonology appointment at [place] 05/01/21 - Discharge Data Discharge Date: 04/06/21 Discharge Disposition: Home, Self-Care 01 Condition: Good - Referral to Home Health Primary Care Physician: Keke Silva PA-C - Patient Instructions Diet: Usual Diet as Tolerated Showering/Bathing: May Shower - Discharge Plan *PRESCRIPTION DRUG MONITORING PROGRAM REVIEWED*: Not Applicable *COPY OF PRESCRIPTION DRUG MONITORING REPORT IN PATIENT KARAN: Not Applicable Home Medications: Home Meds Albuterol [Ventolin HFA] 1 puff IA ASDIRECTED PRN 03/31/21 [History] Rosuvastatin [Crestor] 10 mg PO DAILY 03/31/21 [History] Azithromycin [Zithromax] 250 mg PO DAILY tablet 04/06/21 [Rx] Budesonide [Pulmicort] 0.5 mg NEB BIDRT neb 04/06/21 [Rx] Diclofenac Sodium [Voltaren 1% Gel] 1 gm TOP Q6H PRN tube 04/06/21 [Rx] Fluticasone Propionate [Flonase] 0 gm NASBOTH BID PRN bottle 04/06/21 [Rx] Loratadine [Claritin] 10 mg PO DAILY tablet 04/06/21 [Rx] predniSONE 40 mg PO WITHBREAKFAST tablet 04/06/21 [Rx] Oxygen Therapy Mode: Room Air Referrals: Keke Silva PA-C [Primary Care Provider] - - Discharge Summary/Plan Comment DC Time >30 min.: Yes Total # of Minutes for Discharge Time: 35 - General Info Date of Service: 04/06/21 Functional Status: Reports: Pain Controlled, Tolerating Diet, Incentive Spirometry (1500 ML). Denies: New Symptoms - Review of Systems General: Reports: No Symptoms. Denies: Fever, Chills HEENT: Reports: No Symptoms Pulmonary: Reports: Shortness of Breath (improving, mild with activity), Cough, Sputum. Denies: Hemoptysis, Wheezing Gastrointestinal: Reports: No Symptoms Genitourinary: Reports: No Symptoms Musculoskeletal: Reports: No Symptoms Skin: Reports: No Symptoms Neurological: Reports: No Symptoms Psychiatric: Reports: No Symptoms - Patient Data Vitals - Most Recent: Last Vital Signs Temp 97.3 F 04/06/21 04:37 Pulse 90 04/06/21 04:37 Resp 18 04/06/21 04:37 BP 123/74 04/06/21 04:37 Pulse Ox 91 L 04/06/21 04:37 Weight - Most Recent: 247 lb 12.8 oz I&O - Last 24 hours: Intake & Output 04/05/21 04/06/21 04/06/21 22:59 06:59 14:59 Intake Total 420 300 Balance 420 300 Lab Results - Last 24 hrs: Laboratory Results - last 24 hr 04/06/21 04/06/21 04/06/21 Range/Units 08:45 08:45 09:27 WBC 9.27 (5.00-10.00) 10^3/uL RBC 4.61 (3.80-5.50) 10^6/uL Hgb 14.4 (12.0-16.0) g/dL Hct 44.0 (37.0-47.0) % MCV 95.4 H (82.0-92.0) fL MCH 31.2 H (27.0-31.0) pg MCHC 32.7 (32.0-36.0) g/dL RDW 14.4 (11.5-14.5) % Plt Count 414 H (150-400) 10^3/uL MPV 9.6 (7.4-10.4) fL Immature Gran % (Auto) 0.2 (0.0-5.0) % Neut % (Auto) 50.3 (50.0-70.0) % Lymph % (Auto) 42.6 H (20.0-40.0) % Traverse % (Auto) 6.0 (2.0-8.0) % Eos % (Auto) 0.8 L (1.0-3.0) % Baso % (Auto) 0.1 (0.0-1.0) % Neut # (Auto) 4.66 (2.50-7.00) 10^3/uL Lymph # (Auto) 3.95 (1.00-4.00) 10^3/uL Traverse # (Auto) 0.56 (0.10-0.80) 10^3/uL Eos # (Auto) 0.07 L (0.10-0.30) 10^3/uL Baso # (Auto) 0.01 (0.00-0.10) 10^3/uL Immature Gran # (Auto) 0.02 (0.00-0.50) 10^3/uL Sodium 137 (136-145) mmol/L Potassium 3.9 (3.5-5.1) mmol/L Chloride 99 (98-107) mmol/L Carbon Dioxide 29.1 (21.0-32.0) mmol/L Anion Gap 12.8 (5-15) mmol/L BUN 14 (7-18) mg/dL Creatinine 0.66 (0.51-1.17) mg/dL Est Cr Clr Drug Dosing 74.25 mL/min Estimated GFR (MDRD) > 60 mL/min Glucose 136 (70-140) mg/dL POC Glucose 81 (70-140) mg/dL Calcium 9.2 (8.7-10.3) mg/dL VAIBHAV Results - Last 24 hrs: Microbiology 03/31/21 11:45 Aerobic Blood Culture - Final Blood - Venous NO GROWTH AFTER 5 DAYS Anaerobic Blood Culture - Final NO GROWTH AFTER 5 DAYS 03/31/21 12:25 Aerobic Blood Culture - Final Blood - Venous - Lab Draw NO GROWTH AFTER 5 DAYS Anaerobic Blood Culture - Final NO GROWTH AFTER 5 DAYS Med Orders - Current: Current Medications Acetaminophen (Acetaminophen 325 Mg Tab) 650 mg PO Q4H PRN PRN Reason: analgesia/fever Albuterol (Albuterol 0.083% 2.5 Mg/3 Ml Neb Soln) 2.5 mg NEB Q6HRRT KIM Last Admin: 04/06/21 11:12 Dose: 2.5 mg Documented by: Azithromycin (Azithromycin 250 Mg Tab) 250 mg PO DAILY [facility] Last Admin: 04/06/21 08:31 Dose: 250 mg Documented by: Budesonide (Budesonide 0.5 Mg/2 Ml Neb Susp) 0.5 mg NEB BIDRT [facility] Last Admin: 04/06/21 08:29 Dose: 0.5 mg Documented by: Diclofenac Sodium (Diclofenac Sodium 1% Gel 100 Gm Tube) 1 gm TOP Q6H PRN PRN Reason: Pain Fluticasone Propionate (Fluticasone Propionate Nasal [place] 16 Gm Bottle) 0 gm NASBOTH BID [facility] Last Admin: 04/06/21 08:30 Dose: 1 spray Documented by: Guaifenesin/Phenylephrine HCl (Guaifenesin/Dextromethorphan 100-10 Mg/5 Ml Soln 5 Ml Cup) 10 ml PO Q6H [facility] Last Admin: 04/06/21 09:28 Dose: 10 ml Documented by: Sodium Chloride (Normal Saline) 100 mls @ 50 mls/hr IV ASDIRECTED [facility] Last Admin: 04/03/21 10:41 Dose: 50 mls/hr Documented by: Loratadine (Loratadine 10 Mg Tab) 10 mg PO DAILY [facility] Last Admin: 04/06/21 08:30 Dose: 10 mg Documented by: Lorazepam (Lorazepam 0.5 Mg Tab) 0.5 mg PO Q12H PRN PRN Reason: hyperventilation Last Admin: 04/05/21 22:33 Dose: 0.5 mg Documented by: Melatonin (Melatonin 3 Mg Tab) 3 mg PO BEDTIME PRN PRN Reason: Insomnia Last Admin: 04/05/21 20:49 Dose: 3 mg Documented by: Potassium Chloride (Potassium Chloride 10 Meq Tab.Er) 10 meq PO DAILY [facility] Last Admin: 04/06/21 08:30 Dose: 10 meq Documented by: Prednisone (Prednisone 20 Mg Tab) 40 mg PO WITHBREAKFAST [facility] Last Admin: 04/06/21 08:31 Dose: 40 mg Documented by: Rosuvastatin Calcium (Rosuvastatin 10 Mg Tab) 10 mg PO DAILY [facility] Last Admin: 04/06/21 08:31 Dose: 10 mg Documented by: Sodium Chloride (Sodium Chloride 0.9% 10 Ml Syringe) 10 ml FLUSH Q8HR PRN PRN Reason: keep vein open Discontinued Medications Albuterol (Albuterol 0.083% 2.5 Mg/3 Ml Neb Soln) 2.5 mg NEB Q4HRRT PRN PRN Reason: Shortness of Breath Last Admin: 04/05/21 08:40 Dose: 2.5 mg Documented by: Albuterol/Ipratropium (Albuterol/Ipratropium 3.0-0.5 Mg/3 Ml Neb Soln) 3 ml NEB ONETIME ONE Stop: 03/31/21 11:40 Last Admin: 03/31/21 11:46 Dose: 3 ml Documented by: Albuterol/Ipratropium (Albuterol/Ipratropium 3.0-0.5 Mg/3 Ml Neb Soln) 3 ml NEB Q4HRRT PRN PRN Reason: Shortness of Breath Last Admin: 04/01/21 08:29 Dose: 3 ml Documented by: Albuterol/Ipratropium (Albuterol/Ipratropium 3.0-0.5 Mg/3 Ml Neb Soln) 3 ml NEB Q6H KIM Last Admin: 04/05/21 05:35 Dose: 3 ml Documented by: Budesonide (Budesonide 0.5 Mg/2 Ml Neb Susp) 0.5 mg NEB BIDRT KIM Famotidine (Famotidine 20 Mg Tab) 20 mg PO ONETIME ONE Stop: 04/04/21 10:06 Last Admin: 04/04/21 11:02 Dose: 20 mg Documented by: Guaifenesin/Codeine Phosphate (Codeine/Guaifenesin 10-100 Mg/5 Ml Syrup 5 Ml Cup) 5 ml PO ONETIME ONE Stop: 04/04/21 22:01 Last Admin: 04/04/21 21:19 Dose: 5 ml Documented by: Guaifenesin/Phenylephrine HCl (Guaifenesin/Dextromethorphan 100-10 Mg/5 Ml Soln 5 Ml Cup) 10 ml PO Q4H PRN PRN Reason: Cough Last Admin: 04/03/21 21:45 Dose: 10 ml Documented by: Azithromycin 500 mg/ Sodium (Chloride) 250 mls @ 250 mls/hr IV ONETIME ONE Stop: 04/03/21 10:46 Last Admin: 04/03/21 10:41 Dose: 250 mls/hr Documented by: Loratadine (Loratadine 10 Mg Tab) 10 mg PO ONETIME ONE Stop: 03/31/21 12:37 Last Admin: 03/31/21 12:56 Dose: 10 mg Documented by: Prednisone (Prednisone 10 Mg Tab) 40 mg PO ONETIME ONE Stop: 03/31/21 12:37 Last Admin: 03/31/21 12:56 Dose: 40 mg Documented by: - Exam Quality Assessment: Denies: Supplemental Oxygen General: Reports: Alert, Oriented, Cooperative, No Acute Distress HEENT: Reports: Pupils Equal, Mucous Membr. Moist/[place] Neck: Reports: Supple, Trachea Midline Lungs: Reports: Normal Respiratory Effort, Decreased Breath Sounds. Denies: Crackles, Rales, Rhonchi, Wheezing Cardiovascular: Reports: Regular Rate, Regular Rhythm, No Murmurs GI/Abdominal Exam: Normal Bowel Sounds, Soft, Non-Tender, No Distention (Female) Exam: Deferred Rectal (Female) Exam: Deferred Back Exam: Reports: Normal Inspection, Full Range of Motion Extremities: Normal Inspection, Normal Range of Motion, Non-Tender, No Pedal Edema, Normal Capillary Refill Skin: Reports: Warm, Dry, Intact Neurological: Reports: No New Focal Deficit Psy/Mental Status: Reports: Alert, Normal Affect, Normal Mood
== END 2021-04-06 12:25 | disposition home or self-care (01) | DRG 189 ==
LOC: KA.ED 11:10 → KA.MS 13:13 → OBSVTOIN 04-02 12:41 → KA.MS 04-02 12:42
PROVIDERS: ADMIT Nurse Practitioner Family; ATTEND Family Medicine
DX: J96.01 Acute respiratory failure with hypoxia (principal); J30.9 Allergic rhinitis, unspecified; R07.81 Pleurodynia; J44.9 Chronic obstructive pulmonary disease, unspecified; E78.5 Hyperlipidemia, unspecified; Z20.822 Contact with and (suspected) exposure to COVID-19; H54.7 Unspecified visual loss; E78.00 Pure hypercholesterolemia, unspecified; Z96.659 Presence of unspecified artificial knee joint; J47.9 Bronchiectasis, uncomplicated; E87.6 Hypokalemia; Z79.51 Long term (current) use of inhaled steroids; Z79.899 Other long term (current) drug therapy; Z90.49 Acquired absence of other specified parts of digestive tract; Z90.710 Acquired absence of both cervix and uterus; Z99.81 Dependence on supplemental oxygen
CPT/HCPCS: 36415; 36600; 71046; 71250; 80048; 80053; 82803; 82947; 83605; 83880; 84484; 85025; 85379; 87040; 93005; 94640; 99284; 99285-25; A9270-GY; G0378; J0456; J7050; J7512; J7613-GY; J7620-GY; U0002